=== PATIENT | female | born 1960 | race Caucasian/White ===

== ENCOUNTER → 2016-06-16 | Outpatient (REF) | payer MEDICARE ==
[~2016-06-16] MED LIST: ATIV1TAB10 PO; CIPR500T3 PO; HYDR1TAB97 PO; LEVA500T PO; MOXI1TAB PO; NAPR250T2 PO; NORC5TAB PO; OPSU1TAB PO; TYLE325T5 PO; TYVA0.6S INH; WARF-20 PO; WARF-23 PO
== END ==
LOC: M LAB REF 16:37
PROVIDERS: ATTEND Internal Medicine Medical Oncology
DX: C18.9 Malignant neoplasm of colon, unspecified (principal)

== ENCOUNTER → 2016-08-16 | Outpatient (CLI) | payer MEDICARE ==
[~2016-08-16] MED LIST changes: +GASTROGRAFIN SOLUTION 30ML (Q9963) As Ordered ONE; +HYDR-3713 PO; -HYDR1TAB97 PO; +ISOVUE-370 76% 100ML VIAL (Q9967) As Ordered ONE
--- NOTE | 2016-08-16 14:46 | REP ---
CT of the chest with IV contrast: Comparison is 03/17/2016. [id number] catheter is again noted entering from the left with the tip is in the superior vena cava, unchanged. There are no lung masses or nodules. There is a surgical suture line in the right lower lobe, as previously. There are no acute infiltrates or effusions. There is no mediastinal or hilar adenopathy. Thoracic aorta is unremarkable. Cardiac size normal. There is no pericardial effusion. There is no axillary adenopathy. No lytic, blastic or destructive skeletal changes are identified. Upper abdomen: Splenomegaly and splenic varices are again noted. Lobulated hepatic margin is again noted. Cholelithiasis is again noted. There is no adrenal mass. I suspect there are varices at the distal esophagus. This is unchanged. Impression: No evidence of pulmonary metastases is identified. There is no adenopathy, infiltrate or effusion. There is a surgical staple line in the right lower lobe, unchanged. There is evidence for cirrhosis and varices, unchanged. Splenomegaly is again noted. Cholelithiasis is again noted. Signed by Nahun Hernadez MD 08/16/2016 02:38 P
--- NOTE | 2016-08-16 15:00 | REP ---
CT abdomen pelvis with IV and oral contrast: Scan is continued from the chest into the abdomen using the same IV contrast bolus. Bowel contrast is also utilized. Additionally the liver scan prior to IV contrast. And the liver is additionally scanned with a delay after IV contrast. Comparison is 03/17/2016. Splenomegaly and splenic varices are again noted. The hepatic margin has a nodular appearance as previously compatible with cirrhosis. I suspect there are esophageal varices. These are unchanged. There are no focal hepatic lesions. The pancreas is unremarkable. There is cholelithiasis. This is unchanged. There is no biliary duct dilatation. The adrenals are unremarkable. The kidneys are unremarkable. Incidentally noted is a small 1 cm cyst in the upper pole of the right kidney. This is unchanged. The abdominal aorta is unremarkable. There is no retroperitoneal adenopathy. There is no mesenteric adenopathy or ascites. No bowel distension. Pelvis: The appendix is normal. A surgical suture line is again noted in the rectosigmoid colon, unchanged. There is no pelvic ascites or adenopathy. There are no lytic, blastic or destructive skeletal changes. Impression: No interval change. There is no evidence of metastatic disease, adenopathy or ascites. There is evidence for cirrhosis and splenomegaly. Splenic an esophageal varices are again noted. Cholelithiasis is again noted. Signed by Nahun Hernadez MD 08/16/2016 02:51 P
== END ==
LOC: M RAD 11:15
PROVIDERS: ATTEND Internal Medicine Medical Oncology
DX: C19 Malignant neoplasm of rectosigmoid junction (principal); R16.1 Splenomegaly, not elsewhere classified; K74.60 Unspecified cirrhosis of liver
CPT/HCPCS: 71260; 74178; Q9963; Q9967

== ENCOUNTER → 2016-08-31 | Outpatient (REF) | payer MEDICARE ==
[~2016-08-31] MED LIST changes: -GASTROGRAFIN SOLUTION 30ML (Q9963) As Ordered ONE; -ISOVUE-370 76% 100ML VIAL (Q9967) As Ordered ONE
== END ==
LOC: M LAB REF 16:27
PROVIDERS: ATTEND Internal Medicine Medical Oncology
DX: C18.9 Malignant neoplasm of colon, unspecified (principal)

== ENCOUNTER → 2016-09-15 | Outpatient (CLI) | payer MEDICARE ==
[~2016-09-15] MED LIST changes: +NORC1TAB4 PO; -NORC5TAB PO
--- NOTE | 2016-09-15 14:16 | REP ---
WHOLE BODY BONE SCAN: Following the intravenous administration of 20.2 millicuries technetium 99m MDP, the patient's whole body is imaged in the anterior and posterior projections with additional oblique images of the thoracic and pelvic regions performed as well as lateral views of the calvarium, knees and feet. There is small focal area of increased uptake at the left 11th costovertebral junction consistent with arthritic changes seen on the recent CT of 08/16/2016. There is no compelling scintigraphic evidence of osseous metastases. Renal and bladder activity are seen. IMPRESSION: No compelling scintigraphic evidence of osseous metastases. Signed by Nahun Byrnes MD 09/15/2016 02:29 P
== END ==
LOC: M RAD 10:37
PROVIDERS: ATTEND Internal Medicine Medical Oncology
DX: C18.9 Malignant neoplasm of colon, unspecified (principal); R07.81 Pleurodynia; M19.90 Unspecified osteoarthritis, unspecified site
CPT/HCPCS: 78306; A9503

== ENCOUNTER → 2016-12-13 | Outpatient (CLI) | payer MEDICARE ==
[~2016-12-13] MED LIST changes: +LEVA1TAB2 PO; -LEVA500T PO; -NAPR250T2 PO; +NAPR250T4 PO
--- NOTE | 2016-12-13 11:05 | REP ---
REASON: History of cirrhosis and hypertension. COMPARISON: None. Previous CT of the abdomen 08/16/2016 showed cholelithiasis, splenomegaly, and splenic varices along with a nodular appearing hepatic margin. Multiple ultrasonographic images of the liver show a course appearing echo pattern and a micronodular surface to the hepatic edge. There is no intrahepatic or extrahepatic ductal dilatation. The common bile duct measures between 4-5 mm. Imaging of the gallbladder shows multiple echogenic foci within the gallbladder lumen which casts acoustic shadows consistent with cholelithiasis. The gallbladder wall is mildly thickened measuring just over 2 mm but there is no pericholecystic edema. A Doppler study was not ordered or performed other than standard liver Doppler. The imaged portion of the right kidney was seen to be within normal limits. The pancreas was not visualized due to the patient's intestinal gas pattern. There is evidence of a recanalized umbilical vein which was better imaged on the prior CT. IMPRESSION: 1. The liver appears somewhat small although not measured. There is a micronodular surface to the hepatic edge. These findings are consistent with cirrhosis. 2. Evidence of vascular abnormalities also consistent with cirrhosis as described above. 3. Cholelithiasis also seen on previous CT. 4. Other findings as described above. Signed by Peter Nation DO 12/13/2016 11:15 A
== END ==
LOC: M RAD 09:31
PROVIDERS: ATTEND Internal Medicine Gastroenterology
DX: K74.69 Other cirrhosis of liver (principal); K76.6 Portal hypertension

== ENCOUNTER → 2016-12-31 | Outpatient (REF) | payer MEDICARE | LOC: M LAB REF 13:52 | PROVIDERS: ATTEND Internal Medicine Medical Oncology | DX: C18.9 Malignant neoplasm of colon, unspecified (principal) ==

== ENCOUNTER → 2017-02-10 | Outpatient (CLI) | payer MEDICARE ==
[~2017-02-10] MED LIST changes: +GASTROGRAFIN SOLUTION 30ML (Q9963) As Ordered ONE; +ISOVUE-370 76% 100ML VIAL (Q9967) As Ordered ONE
--- NOTE | 2017-02-10 11:55 | REP ---
Clinical: Colon cancer for restaging. Technique: Axial contrast enhanced images from the thoracic inlet to the pubic symphysis using oral and 100 ml Isovue 370 intravenous contrast material with precontrast and delayed images of the abdomen along with coronal and sagittal re-formations. Findings: The bilateral lung mitchell are well-aerated and demonstrate chronic linear scarring in the right lower lobe. No pulmonary parenchymal consolidation, nodule or mass lesion appreciated. No pleural effusion/reaction or pneumothorax. Tracheobronchial tree is patent. No axillary, hilar, or mediastinal adenopathy. Thoracic aorta and heart/pericardium appear normal. Surrounding musculoskeletal structures are intact without focal osseous abnormality. Suggestions for old healed left rib fractures noted. Impression: Chronic linear scarring in the right lower lobe. No acute mediastinal or pleuroparenchymal process. Specifically, no consolidation, nodule, mass, or effusion. Signed by Francisco Flower MD 02/10/2017 11:47 A
--- NOTE | 2017-02-10 12:00 | REP ---
Clinical: Colon cancer for restaging. Technique: Axial contrast enhanced images from the thoracic inlet to the pubic symphysis using oral and 100 ml Isovue 370 intravenous contrast material with precontrast and delayed images of the abdomen along with coronal and sagittal re-formations. Comparison: 08/16/2016. Findings: Lung bases are clear. Visualized heart and pericardium normal. Cirrhosis and portal venous hypertension including splenic and esophageal varices as well as recanalized umbilical vein are again identified. No focal hepatic or splenic lesion identified. Pancreas, bilateral adrenal glands and kidneys are relatively normal; simple bilateral renal cysts are again noted measuring up to approximately 1.5 cm. Cholelithiasis again identified without evidence for acute cholecystitis. The enteric system is without obstruction or acute inflammatory process. Normal terminal ileum and appendix are identified in the right lower quadrant. Evidence for prior partial sigmoid resection and anastomoses. Pelvis demonstrates normal bladder and age-appropriate uterus/adnexa. No ascites. No adenopathy. No obvious mass lesion. Abdominal aorta and vasculature within normal limits. Musculoskeletal structures without focal osseous abnormality. Impression: 1. Continued evidence for cirrhosis with portal venous hypertension including varices and portosystemic collateral vasculature. 2. No evidence for metastatic disease or recurrence. 3. No acute abdominopelvic pathology appreciated. Signed by Francisco Flower MD 02/10/2017 11:51 A
== END ==
LOC: M RAD 08:57
PROVIDERS: ATTEND Internal Medicine Medical Oncology
DX: C18.9 Malignant neoplasm of colon, unspecified (principal)
CPT/HCPCS: 71260; 74178; Q9963; Q9967

== ENCOUNTER → 2017-07-05 | Outpatient (REF) | payer MEDICARE ==
[2017-07-05 18:55] LABS: CARCINOEMBRYONIC ANTIGEN 1.4 NG/ML (<2.5)
== END ==
LOC: M LAB REF 17:31
DX: C18.9 Malignant neoplasm of colon, unspecified (principal)
CPT/HCPCS: 82378

== ENCOUNTER → 2017-07-07 | Outpatient (CLI) | payer MEDICARE ==
[2017-07-07 21:00] LABS: HEMATOCRIT 36.6 % (36.0-47.0); MEAN CORPUSCULAR HEMOGLOBIN 29.7 pg (27.0-33.0); MEAN CORPUSCULAR HGB CONC 32.8 g/dl (32.0-36.5); MEAN CORPUSCULAR VOLUME 90.6 fl (80.0-96.0); RED BLOOD COUNT 4.04 10^6/uL (4.00-5.40); RED CELL DISTRIBUTION WIDTH 13.3 % (11.5-14.5); WHITE BLOOD COUNT 5.5 10^3/uL (4.0-10.0)
[2017-07-07 21:09] LABS: ESTIMATED AVERAGE GLUCOSE 111 MG/DL (60-110); HEMOGLOBIN A1c 5.5 %
[2017-07-07 21:17] LABS: ALBUMIN 4.3 GM/DL (3.2-5.2); ALBUMIN/GLOBULIN RATIO 1.59 (1.00-1.93); ALKALINE PHOSPHATASE 115 U/L (45-117); ALT/SGPT 30 U/L (12-78); ANION GAP 6 MEQ/L (8-16); AST/SGOT 24 U/L (7-37); BILIRUBIN,TOTAL 1.4 MG/DL (0.2-1.0); BLOOD UREA NITROGEN 17 MG/DL (7-18); CALCIUM LEVEL 8.6 MG/DL (8.5-10.1); CARBON DIOXIDE LEVEL 25 MEQ/L (21-32); CHLORIDE LEVEL 113 MEQ/L (98-107); CHOLESTEROL LEVEL 157 MG/DL (<200); CHOLESTEROL RISK RATIO 2.065 (<5); CREATININE FOR GFR 0.85 MG/DL (0.55-1.30); FREE T4 0.99 NG/DL (0.76-1.46); GLOMERULAR FILTRATION RATE > 60.0 (>51); GLUCOSE, FASTING 95 MG/DL (70-100); HDL CHOLESTEROL 76 MG/DL (>40); LDL CHOLESTEROL 69.4 MG/DL (<100); NON-HDL-C 81 MG/DL; POTASSIUM SERUM 4.6 MEQ/L (3.5-5.1); SODIUM LEVEL 144 MEQ/L (136-145); TRIGLYCERIDES LEVEL 58 MG/DL (<150)
[2017-07-07 21:22] LABS: IMMATURE PLATELET FRACTION % 4.9 % (0.0-9.6); PLATELET COUNT, AUTOMATED 83 10^3/uL (150-450)
== END ==
LOC: M SMT 14:36
DX: Z13.220 Encounter for screening for lipoid disorders (principal); Z13.1 Encounter for screening for diabetes mellitus; Z79.899 Other long term (current) drug therapy
CPT/HCPCS: 84443

== ENCOUNTER → 2017-07-22 | Outpatient (REF) | payer MEDICARE ==
[2017-07-27 08:07] LABS: HPV HYBRID CAPTURE II Negative (Negative)
== END ==
LOC: M LAB REF 15:37
DX: Z12.4 Encounter for screening for malignant neoplasm of cervix (principal)
CPT/HCPCS: G0123

== ENCOUNTER → 2017-08-08 | Outpatient (CLI) | payer MEDICARE ==
[~2017-08-08] MED LIST changes: -ATIV1TAB10 PO; -CIPR500T3 PO; +GASTROGRAFIN SOLUTION 30ML (Q9963) As Ordered; -GASTROGRAFIN SOLUTION 30ML (Q9963) As Ordered ONE; -HYDR-3713 PO; +ISOVUE-370 76% 100ML VIAL (Q9967) As Ordered; -ISOVUE-370 76% 100ML VIAL (Q9967) As Ordered ONE; -LEVA1TAB2 PO; -MOXI1TAB PO; -NAPR250T4 PO; -NORC1TAB4 PO; -OPSU1TAB PO; -TYLE325T5 PO; -TYVA0.6S INH; -WARF-20 PO; -WARF-23 PO
== END ==
LOC: M RAD 11:16
DX: C34.90 Malignant neoplasm of unspecified part of unspecified bronchus or lung (principal); C78.00 Secondary malignant neoplasm of unspecified lung
CPT/HCPCS: Q9963

== ENCOUNTER → 2017-11-29 | Outpatient (REF) | payer MEDICARE ==
[2017-11-29 18:02] LABS: CARCINOEMBRYONIC ANTIGEN 2.4 NG/ML (<2.5)
== END ==
LOC: M LAB REF 16:41
DX: C18.7 Malignant neoplasm of sigmoid colon (principal); C78.01 Secondary malignant neoplasm of right lung; D70.1 Agranulocytosis secondary to cancer chemotherapy; T45.1X5A Adverse effect of antineoplastic and immunosuppressive drugs, initial encounter; D69.59 Other secondary thrombocytopenia
CPT/HCPCS: 82378

== ENCOUNTER → 2018-01-02 | Outpatient (CLI) | payer MEDICARE | LOC: M RAD 13:56 | DX: C78.01 Secondary malignant neoplasm of right lung (principal); I97.0 Postcardiotomy syndrome; K80.20 Calculus of gallbladder without cholecystitis without obstruction; R16.1 Splenomegaly, not elsewhere classified | CPT/HCPCS: Q9963 ==

== ENCOUNTER → 2018-03-14 | Outpatient (CLI) | payer MEDICARE | LOC: M PLARAD 13:15 | DX: C18.7 Malignant neoplasm of sigmoid colon (principal) | CPT/HCPCS: 78815 ==

== ENCOUNTER → 2018-04-14 | Outpatient (CLI) | payer MEDICARE ==
[~2018-04-14] MED LIST changes: -GASTROGRAFIN SOLUTION 30ML (Q9963) As Ordered; -ISOVUE-370 76% 100ML VIAL (Q9967) As Ordered; +PROHANCE 279.3MG/ML 15ML VIAL (A9576) As Ordered; +PROHANCE 279.3MG/ML 5ML VIAL (A9576) As Ordered
== END ==
LOC: M RAD 17:07
DX: K70.30 Alcoholic cirrhosis of liver without ascites (principal); K76.9 Liver disease, unspecified; Z85.038 Personal history of other malignant neoplasm of large intestine; R16.1 Splenomegaly, not elsewhere classified; K80.00 Calculus of gallbladder with acute cholecystitis without obstruction; N28.1 Cyst of kidney, acquired
CPT/HCPCS: A9576

== ENCOUNTER → 2018-06-09 | Outpatient (CLI) | payer MEDICARE ==
[~2018-06-09] MED LIST changes: +ATIV1TAB10 PO; +CIPR500T3 PO; +HYDR-3713 PO; +LEVA1TAB2 PO; +MOXI1TAB PO; +NAPR250T4 PO; +NORC1TAB4 PO; +OPSU1TAB PO; -PROHANCE 279.3MG/ML 15ML VIAL (A9576) As Ordered; +PROHANCE 279.3MG/ML 15ML VIAL (A9576) As Ordered ONE; -PROHANCE 279.3MG/ML 5ML VIAL (A9576) As Ordered; +PROHANCE 279.3MG/ML 5ML VIAL (A9576) As Ordered ONE; +TYLE325T5 PO; +TYVA0.6S INH; +WARF-20 PO; +WARF-23 PO
--- NOTE | 2018-06-09 15:40 | REP ---
MRI abdomen without and with intravenous gadolinium: History: Liver lesion. Comparison study April 14, 2018. Comparison CT study is from January 02, 2018. Comparison PET/CT findings are from March 14, 2018. Technique: Axial and coronal T1 and T2-weighted scans were obtained. Sequences include spin-echo, gradient-echo, fast spin echo, diffusion, in and nea-ni-guosu, and dynamically acquired sequential post contrast T1 fat sat images. Gadolinium enhancement dose is 18 mL of intravenous ProHance. MRI findings: The hepatic findings are unchanged from the comparison MRI study April 14, 2018. There is evidence of advanced cirrhosis with areas of fibrosis in the liver. The posterior segment of the right hepatic lobe is atrophic with overall volume loss. There is abnormal signal intensity on T2-weighted scans in this remaining posterior segment right hepatic lobe tissue but this is unchanged from the prior study. Intrahepatic biliary ductal dilation is suspected in this region, also unchanged. The main portal vein is patent. The left main portal vein and its branches are patent. The anterior segment portal vein branches are patent. The posterior segment portal vein branches are less well seen as before. There is no definite hepatic mass. Splenomegaly is observed. Renal cysts are observed. No upper abdominal or retroperitoneal adenopathy is observed. Cholelithiasis is again seen. Impression: Findings unchanged from the 14 April 2018 prior MRI study. No observable intrahepatic mass lesion. Advanced cirrhosis changes with hepatic scarring. Electronically Signed by Artis Doyle MD 06/09/2018 07:23 P
--- NOTE | 2018-06-21 16:50 | MEDONCTEEN ---
Date/Time of Encounter Date of Encounter: Jun 21, 2018 Time of Encounter: 16:45 Telephone Encounter Kinga was concerned about her CEA. Recent CEA from 05/2018 slightly increased from previous. I suggested repeat CEA this month. If this should show continuing increase, may consider a PET scan. Kinga has agreed to this plan. EARLENE JALLOH MD Jun 21, 2018 16:49
== END ==
LOC: M RAD 13:29
PROVIDERS: ATTEND Nurse Practitioner Acute Care
DX: K76.9 Liver disease, unspecified (principal)
CPT/HCPCS: 74183; A9576

== ENCOUNTER → 2018-07-04 | Outpatient (CLI) | payer MEDICARE ==
[~2018-07-04] MED LIST changes: -PROHANCE 279.3MG/ML 15ML VIAL (A9576) As Ordered ONE; -PROHANCE 279.3MG/ML 5ML VIAL (A9576) As Ordered ONE
--- NOTE | 2018-07-04 16:18 | REP ---
PET/CT: History: Metastatic colon cancer with increasing tumor markers. Rising CEA level. Comparisons: Comparison PET-CT study March 14, 2018. TECHNIQUE: 56 minutes following the intravenous injection of a 8.2 mCi dose of F-18 FDG, three-dimensional PET scintigraphy is acquired from the skull base to the proximal thighs. Triplanar noncontrast CT scanning is acquired through the same anatomic range for attenuation correction, and image registration with scan parameters optimized to minimize radiation exposure to the patient. PET scintigraphy and CT datasets were fused and displayed on a workstation with multiplanar and projection display capability. PET/CT Findings: There is new hypermetabolic uptake in a retroareolar nodule in the left breast. This has maximum standard uptake value 9.3. In addition, there is hypermetabolic brian uptake in the left axilla with two or three normal size brian foci displaying maximum standard uptake value of 4.2. No abnormal hypermetabolic uptake is seen within the liver today. Known cirrhosis pattern. Cholelithiasis. No abnormal retroperitoneal hypermetabolic uptake is seen. An anastomosis is seen in the pelvis in distal colon. No abnormal hypermetabolic uptake is seen here. Post thoracotomy changes are seen in the right chest. No abnormal pulmonary parenchymal nodule is seen. Impression: Hypermetabolic left breast subareolar nodule with mildly hypermetabolic left axillary lymphadenopathy most compatible with breast carcinoma. These are new findings compared with the March 14, 2018 prior study. Focused left breast sonography and mammography are recommended. Consider ultrasound-guided needle biopsy procedure. Electronically Signed by Artis Doyle MD 07/05/2018 08:02 A
== END ==
LOC: M PLARAD 09:42
PROVIDERS: ATTEND Internal Medicine Medical Oncology
DX: Z85.038 Personal history of other malignant neoplasm of large intestine (principal); N63.20 Unspecified lump in the left breast, unspecified quadrant; K80.20 Calculus of gallbladder without cholecystitis without obstruction; K74.60 Unspecified cirrhosis of liver; Z98.0 Intestinal bypass and anastomosis status; R59.0 Localized enlarged lymph nodes
CPT/HCPCS: 78815; A9552

== ENCOUNTER → 2018-09-19 | Outpatient (CLI) | payer MEDICARE ==
[~2018-09-19] MED LIST changes: -NORC1TAB4 PO; +NORC1TAB7 PO
--- NOTE | 2018-09-19 17:36 | REP ---
PET/CT: History: Restaging rectosigmoid colon carcinoma. Status post robotic assisted low anterior resection in September of 2013. Most recent PET-CT study from July 04, 2018 showed a new focus of subareolar uptake in the left breast with hypermetabolic left breast lymph nodes. She apparently also has a nearly lifelong history of intermittent mastitis in that left breast. Comparisons: Comparison PET-CT study July 04, 2018, March 14, 2018, and May 08, 2015. TECHNIQUE: 47 minutes following the intravenous injection of a 8.52 mCi dose of F-18 FDG, three-dimensional PET scintigraphy is acquired from the skull base to the proximal thighs. Triplanar noncontrast CT scanning is acquired through the same anatomic range for attenuation correction, and image registration with scan parameters optimized to minimize radiation exposure to the patient. PET scintigraphy and CT datasets were fused and displayed on a workstation with multiplanar and projection display capability. PET/CT Findings: There is no longer hypermetabolic uptake in the left breast or in any of the left axillary lymph nodes. This would be compatible with the additional history provided of inflammation from mastitis. There is no abnormal hypermetabolic uptake in the chest. There is a 5 mm nodule in the right middle lobe on today's accompanying CT images. This is not clearly apparent on the prior PET-CT. No pulmonary parenchymal hypermetabolic uptake is seen. No other pulmonary nodule is apparent. Irregular macronodular liver contours are again seen suggesting possible cirrhosis. There is once again an area of mildly hypermetabolic uptake in the right lobe of the liver high near the dome of the diaphragm, which demonstrates metabolic activity higher than background liver. Maximum standard uptake value is 6.71. This is the same area, which showed mildly hypermetabolic uptake in March of 2018. It was not present on the most recent PET scintigraphy. No other hypermetabolic liver lesion is seen. No hypermetabolic abdominal adenopathy is seen. Cholelithiasis is noted. No other abnormal abdominal or pelvic hypermetabolic uptake is seen Impression: The recently noted left breast hypermetabolic activity has resolved consistent with an episode of inflammatory mastitis. There is recurrent hypermetabolic uptake in the right lobe of the liver of uncertain significance. There is concomitant evidence suggestive of cirrhosis. No other abnormal hypermetabolic foci. Electronically Signed by Artis Doyle MD 09/20/2018 08:17 A
== END ==
LOC: M PLARAD 13:31
PROVIDERS: ATTEND Internal Medicine Hematology & Oncology
DX: C19 Malignant neoplasm of rectosigmoid junction (principal); R93.2 Abnormal findings on diagnostic imaging of liver and biliary tract
CPT/HCPCS: 78815; A9552

== ENCOUNTER → 2019-02-23 | Outpatient (CLI) | payer MEDICARE ==
[2019-02-23 14:54] LABS: BASO % 0.4 % (0.0-1.0); EOS # 0.1 10^3/uL (0.0-0.5); HEMATOCRIT 36.9 % (36.0-47.0); LYMPH # 0.8 10^3/uL (1.5-5.0); LYMPH % 11.8 % (24.0-44.0); MEAN CORPUSCULAR HEMOGLOBIN 28.8 pg (27.0-33.0); MEAN CORPUSCULAR HGB CONC 32.5 g/dl (32.0-36.5); MEAN CORPUSCULAR VOLUME 88.5 fl (80.0-96.0); MONO # 0.5 10^3/uL (0.0-0.8); MONO % 7.2 % (0.0-5.0); NEUTROPHILS # 5.3 10^3/uL (1.5-8.5); PLATELET COUNT, AUTOMATED 108 10^3/uL (150-450); RED BLOOD COUNT 4.17 10^6/uL (4.00-5.40); WHITE BLOOD COUNT 6.7 10^3/uL (4.0-10.0)
[2019-02-23 15:26] LABS: INR 1.21
[2019-02-23 15:27] LABS: ALBUMIN 4.1 GM/DL (3.2-5.2); ALT/SGPT 24 U/L (12-78); BILIRUBIN,TOTAL 1.2 MG/DL (0.2-1.0); BLOOD UREA NITROGEN 16 MG/DL (7-18); CALCIUM LEVEL 9.2 MG/DL (8.5-10.1); CARBON DIOXIDE LEVEL 24 MEQ/L (21-32); CHLORIDE LEVEL 110 MEQ/L (98-107); CREATININE FOR GFR 0.94 MG/DL (0.55-1.30); GLOMERULAR FILTRATION RATE > 60.0 (>51); GLUCOSE, FASTING 101 MG/DL (70-100); PARTIAL THROMBOPLASTIN TIME 30.6 SECONDS (25.0-38.4); SODIUM LEVEL 143 MEQ/L (136-145); TOTAL PROTEIN 6.8 GM/DL (6.4-8.2)
== END ==
LOC: M ONCM 13:45
PROVIDERS: ATTEND Physician Assistant
DX: D49.9 Neoplasm of unspecified behavior of unspecified site (principal); C18.9 Malignant neoplasm of colon, unspecified

== ENCOUNTER → 2019-03-05 | Outpatient (CLI) | payer MEDICARE ==
[~2019-03-05] MED LIST changes: +LIDOCAINE 1% MDV 20ML VIAL As Ordered ONE; +MIDAZOLAM INJ 2 MG/2 ML VIAL (J2250) As Ordered ONE; +ONDA8TAB7 PO; +PROC10TA4 PO; +VANCOMYCIN HCL 500 MG/10 ML VIAL (J3370) As Ordered ONE; +diphenhydrAMINE INJ 50MG/ML VIAL (J1200) As Ordered ONE; +fentaNYL 100 MCG/2 ML INJECTION (J3010) As Ordered ONE
--- NOTE | 2019-03-05 15:25 | IRHP ---
[facility] IR Pre-Procedure H & P General Date of Service: Mar 05, 2019 Procedure: Same Day Surgery Interval History and Physical I have seen the patient and reviewed last H & P performed within 30 days. There is no significant interval change. History of Present Illness Chief Complaint The patient is a 58-year-old female admitted with a reason for visit of Metastatic Lung Ca. PRE-PROCEDURE DIAGNOSIS: lung ca HEART: normal rate. LUNGS: normal breathing at rest. ASA Classification ASA Classification: II-Mild systemic disease Mallampati Score: I NPO: Yes Problems with prior sedation: No Obstructive Sleep Apnea: No Plan moderate sedation Allergies Coded Allergies: Penicillins (Verified Allergy, Unknown, 09/04/18) Home Medications Scheduled Macitentan (Opsumit), 10 MG PO DAILY, (Reported) Treprostinil (Tyvaso), 2.9 ML INH QID, (Reported) Scheduled PRN Lorazepam (Ativan), 0.5 MG PO PRN PRN for ANXIETY/AGITATION, (Reported) VS, I&O, 24H, Fishbone Vital Signs/I&O Vital Signs Date Time Temp Pulse Resp B/P (MAP) Pulse Ox O2 Delivery O2 Flow Rate FiO2 03/05/19 14:45 97.3 83 18 98 DAVIDSON FARFAN MD Mar 05, 2019 15:25
[2019-03-05 19:09] VITALS: BP 147/56
--- NOTE | 2019-03-28 12:07 | REP ---
IR Ultrasound and fluoroscopy-guided port placement. IR Ultrasound of the neck. IR Moderate sedation. Clinical information: colon cancer. Physician: Dr. Spence. Procedure: The patient was advised of the benefits, risks, and alternatives of the procedure and informed consent was obtained. A time-out was performed with verification of the patient's name, MRN, site of procedure and type of procedure to be performed. The patient was positioned in the supine position on the angiographic table. The site was prepped and draped in the usual sterile fashion. Moderate sedation was performed by the physician including the presence of an independent trained observer who assisted and monitored the patient's level of consciousness and physiologic status. Following the administration of fentanyl and Versed , the physician spent 45 minutes of continuous face to face time with the patient. Ultrasound of the neck reveals a patent and compressible right internal jugular vein. A health and physical education teacher radiograph reveals right perihilar opacity . The neck and anterior chest wall were anesthetized with lidocaine. The right internal jugular vein was accessed using a microintroducer needle under ultrasound guidance, via a lateral approach. An 018 wire was advanced into the superior vena cava, the needle was removed and a microsheath was placed. An Amplatz wire was then passed into the inferior vena cava. An incision at the internal jugular vein access site and anterior chest wall were made using a scalpel. An incision was made at the anterior chest wall. A small pocket was created using a combination of blunt and sharp dissection. A tunneling device was then used to pass the catheter from the pocket to the neck puncture site. An 8-[place] Ang[employer] 3Point[employer] Smart power port was then positioned in the pocket. The catheter was then measured and cut. The introducer sheath was exchanged for a peel-away sheath. The catheter was passed through the peel-away sheath into the internal jugular vein and the peel-away sheath was removed. The port tip was positioned at the cavoatrial junction. The port was then accessed with a Almazan needle. The port flushes and aspirates well. The puncture site in the neck was closed. The chest wall incision was then closed with 2-0 Vicryl and 4-0 Monocryl. Glue and Steri-Strips were applied. A sterile dressing was then applied. The patient tolerated the procedure well and was returned to the PRU in stable condition. Estimated blood loss: <5 ml. Complications: None. Conclusion: 1. Successful placement of an 8-[place] Angio dynamics Smart power port via the right internal jugular vein. The port is ready for immediate use. 2. Patient to follow up in IR clinic in 2 weeks. Thank you for this referral. Electronically Signed by Hannah Spence MD 03/28/2019 12:05 P
== END ==
LOC: M IRPRO 14:19
PROVIDERS: ATTEND Radiology Diagnostic Radiology
DX: C18.9 Malignant neoplasm of colon, unspecified (principal); C78.7 Secondary malignant neoplasm of liver and intrahepatic bile duct; Z88.0 Allergy status to penicillin; Z79.899 Other long term (current) drug therapy
CPT/HCPCS: 36561; 76937; 99152; 99153; C1769; C1788; C1894; J1200; J2250; J3010; J3370

== ENCOUNTER → 2019-03-20 | Outpatient (POV) | payer MEDICARE ==
[~2019-03-20] VITALS: Ht 160 cm; Wt 88.6 kg
[~2019-03-20] MED LIST changes: -LIDOCAINE 1% MDV 20ML VIAL As Ordered ONE; -MIDAZOLAM INJ 2 MG/2 ML VIAL (J2250) As Ordered ONE; -VANCOMYCIN HCL 500 MG/10 ML VIAL (J3370) As Ordered ONE; -diphenhydrAMINE INJ 50MG/ML VIAL (J1200) As Ordered ONE; -fentaNYL 100 MCG/2 ML INJECTION (J3010) As Ordered ONE
[2019-03-20 09:50] VITALS: BP 141/83
--- NOTE | 2019-03-20 10:19 | IRPN ---
[facility] IR Progress Note IR Progress Note DATE: Mar 20, 2019 FOLLOW-UP: 2 weeks status post right chest wall port placement. Patient doing well. No fevers or chills. However, she does sleep on her right side and feels it irritates her around the clavicle. History of prior clavicle fracture. ON EXAMINATION: Right chest wall port site healing well. Right venotomy site stitch still not dissolved. Site looks good. Symmetric bilateral soft tissue pads above the clavicle. IMPRESSION: Doing well status post port placement. I think once the venotomy site stitch dissolves and the catheter becomes incorporated, patient will feel less bothered. I'll follow her up in 3 weeks' time and if she's still bothered by this sensation around the clavicle, we'll discuss options for an arm port. Thank you for this referral. Allergies Coded Allergies: Penicillins (Verified Allergy, Unknown, 09/04/18) VS,Fishbone, I+O VS, Fishbone, I+O Vital Signs Date Time Temp Pulse Resp B/P (MAP) Pulse Ox O2 Delivery O2 Flow Rate FiO2 03/20/19 09:50 97.1 94 16 141/83 (102) 98 DAVIDSON FARFAN MD Mar 20, 2019 10:19
== END ==
LOC: M IRPOV 09:46
PROVIDERS: ATTEND Radiology Diagnostic Radiology
DX: Z45.2 Encounter for adjustment and management of vascular access device (principal)

== ENCOUNTER → 2019-03-29 | Outpatient (CLI) | payer MEDICARE ==
[2019-03-30 10:25] LABS: HEPATITIS B CORE ANTIBODY IGM NEGATIVE (NEGATIVE); HEPATITIS B SURFACE ANTIBODY POSITIVE (POSITIVE); HEPATITIS B SURFACE ANTIGEN NEGATIVE (NEGATIVE)
== END ==
LOC: M LAB 16:07
PROVIDERS: ATTEND Physician Assistant
DX: K74.60 Unspecified cirrhosis of liver (principal)

== ENCOUNTER → 2019-06-04 | Outpatient (CLI) | payer MEDICARE ==
[~2019-06-04] MED LIST changes: +GASTROGRAFIN SOLUTION 30ML (Q9963) As Ordered ONE; +ISOVUE-370 76% 100ML VIAL (Q9967) As Ordered ONE
--- NOTE | 2019-06-04 14:42 | REP ---
Clinical: Metastatic colon cancer. Technique: Axial contrast enhanced images from the thoracic inlet to the upper abdomen with coronal and sagittal re-formations using 100 ml Isovue 370 intravenous contrast material. Comparison: 02/12/2019. Findings: Diffuse metastatic disease with scattered rounded lesions are appreciated which have slightly increased from prior examination. As example, a metastatic focus in the right lower lobe now measures 9.4 mm diameter and previously measured 5.5 mm (image 84), and a left lower lobe lesion currently measuring 9 mm diameter previously measured 5.5 mm (image 57). No effusion. No pneumothorax. Tracheobronchial tree is patent. No significant axillary, hilar, or mediastinal adenopathy. Thoracic aorta, pulmonary vasculature and heart/pericardium are relatively normal. Musculoskeletal structures without focal osseous abnormality. [id number] identified with tip in the SVC. Impression: 1. Current examination demonstrates slight increase in size of the bilateral metastatic foci. Electronically Signed by Francisco Flower MD 06/04/2019 02:34 P
--- NOTE | 2019-06-04 14:53 | REP ---
Clinical: Metastatic colon cancer. Technique: Axial contrast enhanced images from the lung bases to the pubic symphysis using oral (per protocol) 100 ml Isovue 370 intravenous contrast material with coronal and sagittal re-formations. Delayed images of the abdomen obtained. Comparison: 02/12/2019 Findings: Evidence for cirrhosis with portal venous hypertension including large recanalized umbilical vein, portosystemic shunting, and splenomegaly. There is a somewhat vague low density area along the posterior contour of the liver which is concerning for area of metastatic disease. Cholelithiasis. Pancreas, bilateral adrenal glands and left kidney are normal. Right kidney includes few cysts measuring up to 1.6 cm. The enteric system demonstrates evidence for prior partial sigmoid resection and the pericolonic fat surrounding the area of resection appears relatively clear and free of adjacent adenopathy or obvious mass. Remainder of the enteric system including terminal ileum, cecum and appendix appear normal. Pelvis demonstrates partially collapsed bladder and age-appropriate uterus/adnexa. No ascites. No mass lesion. Retroperitoneal paracaval lymph nodes are again appreciated measuring up to approximately 17.5 mm. Abdominal aorta without aneurysm or dissection. Osseous structures demonstrate degenerative changes without focal abnormality. Impression: 1. Evidence for cirrhosis with portal hypertension. 2. Somewhat vague low density area within the posterior right hepatic segment is nonspecific but cannot exclude hepatic metastatic disease. 3. Paracaval retroperitoneal lymph nodes up to 17.5 mm concerning for malignancy. Electronically Signed by Francisco Flower MD 06/04/2019 02:46 P
== END ==
LOC: M RAD 12:10
PROVIDERS: ATTEND Internal Medicine Medical Oncology
DX: C18.7 Malignant neoplasm of sigmoid colon (principal); R93.5 Abnormal findings on diagnostic imaging of other abdominal regions, including retroperitoneum; C78.7 Secondary malignant neoplasm of liver and intrahepatic bile duct; C78.01 Secondary malignant neoplasm of right lung
CPT/HCPCS: 71260; 74177; Q9963; Q9967

== ENCOUNTER → 2019-12-27 | Outpatient (CLI) | payer MEDICARE ==
[~2019-12-27] MED LIST changes: -GASTROGRAFIN SOLUTION 30ML (Q9963) As Ordered ONE; -ISOVUE-370 76% 100ML VIAL (Q9967) As Ordered ONE; +LOMO2.5T PO; +LONS1TAB2 PO; +LOPE1CAP5 PO; +ONDA8TAB10 PO; -ONDA8TAB7 PO
== END ==
LOC: M LAB 11:50
PROVIDERS: ATTEND Internal Medicine Medical Oncology
DX: C18.9 Malignant neoplasm of colon, unspecified (principal)

== ENCOUNTER → 2020-02-13 | Outpatient (CLI) | payer MEDICARE, MEDICAID ==
[~2020-02-13] MED LIST changes: +GASTROGRAFIN SOLUTION 30ML (Q9963) As Ordered ONE; +ISOVUE-370 76% 100ML VIAL As Ordered ONE
--- NOTE | 2020-03-05 10:52 | REP ---
CONTRAST ENHANCED CHEST CT: 02/13/20 CLINICAL: Follow-up metastatic colon cancer. TECHNIQUE: Axial contrast enhanced images from the thoracic inlet to the upper abdomen with coronal and sagittal reformations using 100cc Isovue 370 intravenous contrast material followed by CT of the abdomen and pelvis. COMPARISON: Multiple prior examinations dating through 01/02/2018. FINDINGS: The lung mitchell demonstrate scattered chronic areas of fibrosis/scarring primarily identified in the apical right lower lobe and scattered small partially calcified and non-calcified nodules which represent sequelae from prior metastatic disease. Lesions on the prior examination have essentially either resolved and partially calcified or remained stable in size. The general appearance is that of significant improvement and no new pulmonary metastatic nodules are identified. No consolidation. No effusion. No pneumothorax. Tracheobronchial tree is patent. No significant adenopathy noted .Further evaluation of the mediastinum demonstrates normal thoracic aorta. The main pulmonary artery appears dilated to 44.8mm diameter, which may represent underlying pulmonary arterial hypertension and should be correlated clinically. No evidence for cardiomegaly or pericardial effusion. [id number] identified with tip extending into SVC. The musculoskeletal structures are intact and without focal osseous abnormality. IMPRESSION: 1. Previously noted metastatic lesions have either stabilized or completely regressed and partially calcified. No new metastatic lesions are appreciated. No new consolidation or significant nodule/mass identified. 2. Enlarged pulmonary artery suggesting the possibility of pulmonary arterial hypertension and correlation is recommended. MTDD
--- NOTE | 2020-03-05 10:52 | REP ---
CONTRAST-ENHANCED CT OF ABDOMEN AND PELVIS CLINICAL: History of metastatic colon cancer. TECHNIQUE: Axial contrast-enhanced images from the lung bases to the pubic symphysis using oral (per protocol) and 100 mL Isovue-370 intravenous contrast material along with delayed images of the abdomen and coronal and sagittal reformations. COMPARISON: Multiple prior examinations dating through 01/02/2018. FINDINGS: The liver demonstrates stable chronic changes related to cirrhosis. There is an area of vague enhancement along the posterior segment right lobe, similar to prior examination which may reflect an underlying infiltrating lesion, or transient hepatic attenuation, splenomegaly, and evidence for portal hypertension including canalized umbilical vein noted. Pancreas and bilateral adrenal glands are normal. The gallbladder is distended with multiple gallstones again noted. The kidneys demonstrate normal symmetric enhancement without perinephric stranding or hydronephrosis, along with a few scattered stable cysts measuring up to 1.7 cm in the upper pole of the right kidney. Evaluation of the enteric system demonstrates prior partial sigmoid resection and rectosigmoid anastomosis in the pelvis. The residual rectosigmoid portion distal to the anastomosis and suture line demonstrates circumferential mucosal wall thickening, which represents a relatively new finding as compared to most recent prior examination. Further evaluation of the pelvis demonstrates normal collapsed bladder and age appropriate uterus/adnexa. No pelvic fluid or ascites. No free air. Small mesenteric lymph nodes are nonspecific. Paracaval retroperitoneal lymph nodes are also identified measuring up to approximately 12 mm, but appear less prominent than prior examinations. Abdominal aorta without aneurysm or dissection. Musculoskeletal structures are intact and without focal osseous abnormalities. IMPRESSION: The residual rectosigmoid distal to the anastomosis demonstrates circumferential mucosal wall thickening which requires further investigation to exclude recurrence. MTDD
== END ==
LOC: M RAD 14:10
PROVIDERS: ATTEND Internal Medicine Medical Oncology
DX: C18.9 Malignant neoplasm of colon, unspecified (principal)
CPT/HCPCS: 71260; 74177; Q9963; Q9967

== ENCOUNTER → 2020-05-06 | Outpatient (CLI) | payer MEDICARE ==
--- NOTE | 2020-05-06 17:50 | REP ---
INDICATION: METASTATIC COLON CA. COMPARISON: Comparison CT studies are reviewed from May 18, 2019 and February 13, 2020.. TECHNIQUE: 100 cc of intravenous Isovue 370 is administered. Helical scanning is acquired and 3 mm axial images are generated. Coronal and sagittal MPR images are generated. FINDINGS: There are numerous metastatic nodules in the lungs bilaterally in the lower and upper lobes and right middle lobe. None of these is larger than a cm and all are unchanged from the most recent prior study of February 13, 2020, many of these are regressed compared with the June 04, 2019 study. No new pulmonary metastatic nodule is appreciated. No infiltrate is seen. Post thoracotomy partial pneumonectomy linear fibrosis is seen in the distribution of the right lower lobe. This is unchanged. No pleural or pericardial effusion is seen. No hilar or mediastinal mass or adenopathy is observed. There is moderate dilation of the main pulmonary artery and central pulmonary arteries consistent with pulmonary arterial hypertension. The main pulmonary artery measures 4.8 cm in right left dimension where as the ascending aorta at the level of the right main pulmonary artery measures 2.9 cm. The interventricular septum is rather straight and the right heart appears somewhat dilated consistent with an these findings. These findings are unchanged. There is evidence of hepatic cirrhosis with possible portal hypertension. The umbilical vein appears to be recannulated. There are gallstones in the gallbladder. No new liver mass lesion is appreciated. Bone window settings show no bony destructive lesion. There is degenerative disc changes in the lower thoracic and lumbar spine. IMPRESSION: Numerous stable pulmonary nodules all of which are under a cm in diameter. Most of these have regressed since the June 04, 2019 study and there is no change in size or number from the more recent study of February 13, 2020. Evidence of pulmonary arterial hypertension again noted. Hepatic cirrhosis changes. <Electronically signed by James Doyle > 05/06/20 [id number]
--- NOTE | 2020-05-06 17:54 | REP ---
INDICATION: METASTATIC COLON CA. COMPARISON: None. TECHNIQUE: Helical scanning is acquired and 3 mm axial images re-formatted. Coronal and sagittal MPR images are generated. The CT contrast enhancement dose is 100 mL of intravenous Isovue 370. FINDINGS: There is a again noted evidence of a patent cirrhosis with macro nodular liver contour. There is some regional atrophy of the posterior segment of the right lobe of the liver with a somewhat inhomogeneous contrast enhancement in this region unchanged. Splenomegaly is again observed unchanged. There is recannulization of the umbilical vein again noted consistent with portal hypertension. Opaque gallstones are noted in the dependent portion the gallbladder as before. No pancreatic abnormality is seen. No adrenal abnormality is seen. No new liver mass lesion or adenopathy is observed. The kidneys enhance symmetrically and appear morphologically intact. Normal appendix is seen. Small and large bowel loops are unremarkable in the upper abdomen. Pelvic CT images demonstrate an unremarkable rectosigmoid anastomosis. No pelvic mass or adenopathy is seen. Previously noted mural thickening is not observed today. No uterine or adnexal abnormality is seen. Urinary bladder is largely empty but appears intact. IMPRESSION: Evidence of a patent cirrhosis and probable portal venous hypertension again noted. Liver is unchanged. Splenomegaly and cholelithiasis are again seen. No abdominal mass or adenopathy seen. <Electronically signed by James Doyle > 05/06/20 [id number]
== END ==
LOC: M RAD 14:52
PROVIDERS: ATTEND Internal Medicine Medical Oncology
DX: C18.9 Malignant neoplasm of colon, unspecified (principal); I27.20 Pulmonary hypertension, unspecified; K74.60 Unspecified cirrhosis of liver; R16.1 Splenomegaly, not elsewhere classified; K80.20 Calculus of gallbladder without cholecystitis without obstruction
CPT/HCPCS: 71260; 74177; Q9963; Q9967

== ENCOUNTER → 2020-06-12 | Outpatient (CLI) | payer MEDICARE ==
[~2020-06-12] MED LIST changes: -GASTROGRAFIN SOLUTION 30ML (Q9963) As Ordered ONE; -ISOVUE-370 76% 100ML VIAL As Ordered ONE
== END ==
LOC: M LABSMTC 11:36
PROVIDERS: ATTEND Anesthesiology
DX: Z01.812 Encounter for preprocedural laboratory examination (principal); Z20.822 Contact with and (suspected) exposure to COVID-19

== ENCOUNTER → 2020-10-22 | Outpatient (CLI) | payer MEDICARE ==
[~2020-10-22] MED LIST changes: +COVI100V IM; +NAPR-849 PO; -NAPR250T4 PO
== END ==
LOC: M LABSMTC 11:30
PROVIDERS: ATTEND Anesthesiology
DX: Z01.812 Encounter for preprocedural laboratory examination (principal); Z20.822 Contact with and (suspected) exposure to COVID-19

== ENCOUNTER 2020-10-27 11:37 | Day surgery (SDC) | payer MEDICARE ==
[~2020-10-27] VITALS: Ht 162.6 cm; Wt 80.3 kg
[~2020-10-27 11:37] MED LIST changes: +NS 1,000 ML IV ONE
[2020-10-27] MEDS ORDERED: LIDOCAINE 2% 100MG/5ML SDV (FOR ANES.) As Ordered ONE (12:04)
[2020-10-27] MEDS ORDERED: propofoL 200 MG/20 ML VIAL As Ordered ONE ×2 (12:04→12:21)
[2020-10-27] MEDS ORDERED: fentaNYL 100 MCG/2 ML INJECTION (J3010) As Ordered ONE (12:16)
--- NOTE | 2020-10-27 13:06 | ROOR ---
Patient Name: Kinga Peña Procedure Date: 10/27/2020 12:13 PM Date of : 1960 Age: 60 Room: [facility] Gender: Female Note Status: Finalized Procedure: Upper GI endoscopy Indications: Portal hypertension with suspected esophageal varices, Abnormal CT of the GI tract, Follow-up of polyps in the duodenum Providers: Kyle Sorenson MD Referring MD: Nicole HUITRON DO Requesting Provider: Medicines: Monitored Anesthesia Care Complications: No immediate complications. Procedure: Pre-Anesthesia Assessment: - Prior to the procedure, a History and Physical was performed, and patient medications and allergies were reviewed. The patient is competent. The risks and benefits of the procedure and the sedation options and risks were discussed with the patient. All questions were answered and informed consent was obtained. Patient identification and proposed procedure were verified by the physician, the nurse and the anesthesiologist in the procedure room. Mental Status Examination: alert and oriented. Airway Examination: normal oropharyngeal airway and neck mobility. Respiratory Examination: clear to auscultation. CV Examination: normal. Prophylactic Antibiotics: The patient does not require prophylactic antibiotics. Prior Anticoagulants: The patient has taken no previous anticoagulant or antiplatelet agents. ASA Grade Assessment: II - A patient with mild systemic disease. After reviewing the risks and benefits, the patient was deemed in satisfactory condition to undergo the procedure. The anesthesia plan was to use monitored anesthesia care (MAC). Immediately prior to administration of medications, the patient was re-assessed for adequacy to receive sedatives. The heart rate, respiratory rate, oxygen saturations, blood pressure, adequacy of pulmonary ventilation, and response to care were monitored throughout the procedure. The physical status of the patient was re-assessed after the procedure. The Endoscope was introduced through the mouth, and advanced to the second part of duodenum. The upper GI endoscopy was accomplished without difficulty. The patient tolerated the procedure well. Findings: The examined esophagus was normal. The Z-line was regular and was found 39 cm from the incisors. There is no endoscopic evidence of varices in the entire esophagus. Patchy moderate inflammation characterized by erosions, erythema, friability and granularity was found in the gastric antrum. Biopsies were taken with a cold forceps for Helicobacter pylori testing. Biopsies were taken with a cold forceps for histology. Verification of patient identification for the specimen was done by the physician and nurse using the patient's name, date and medical record number. Estimated blood loss was minimal. The duodenal bulb, second portion of the duodenum and third portion of the duodenum were normal. Impression: - Normal esophagus. - Z-line regular, 39 cm from the incisors. - Gastritis. Biopsied. - Normal duodenal bulb, second portion of the duodenum and third portion of the duodenum. Recommendation: - Patient has a contact number available for emergencies. The signs and symptoms of potential delayed complications were discussed with the patient. Return to normal activities tomorrow. Written discharge instructions were provided to the patient. - High fiber diet. - Continue present medications. - Await pathology results. - Use Pepcid (famotidine) 20 mg PO Twice daily ( take cook morning on empty stomach and at bedtime) for 8 weeks. - Telephone GI clinic for pathology results in 2 weeks. - Return to primary care physician. Procedure Code(s): --- Professional --- 87166, Esophagogastroduodenoscopy, flexible, transoral; with biopsy, single or multiple Diagnosis Code(s): --- Professional --- K29.70, Gastritis, unspecified, without bleeding K76.6, Portal hypertension K31.7, Polyp of stomach and duodenum R93.3, Abnormal findings on diagnostic imaging of other parts of digestive tract CPT copyright 2019 [employer]. All rights reserved. The codes documented in this report are preliminary and upon gluing machine offbearer review may be revised to meet current compliance requirements. Kyle Sorenson MD Kyle Sorenson MD 10/27/2020 1:06:23 PM Electronically signed by Kyle Sorenson MD Number of Addenda: 0 Note Initiated On: 10/27/2020 12:13 PM Estimated Blood Loss: Estimated blood loss was minimal.
--- NOTE | 2020-10-27 13:16 | ROOR ---
Patient Name: Kinga Peña Procedure Date: 10/27/2020 12:14 PM Date of : 1960 Age: 60 Room: [facility] Gender: Female Note Status: Finalized Procedure: Colonoscopy Indications: High risk colon cancer surveillance: Personal history of colon cancer, Incidental - Abnormal CT of the GI tract Providers: Kyle Sorenson MD Referring MD: Nicole HUITRON DO Requesting Provider: Medicines: Monitored Anesthesia Care Complications: No immediate complications. Procedure: Pre-Anesthesia Assessment: - Prior to the procedure, a History and Physical was performed, and patient medications and allergies were reviewed. The patient is competent. The risks and benefits of the procedure and the sedation options and risks were discussed with the patient. All questions were answered and informed consent was obtained. Patient identification and proposed procedure were verified by the physician, the nurse and the anesthesiologist in the procedure room. Mental Status Examination: alert and oriented. Airway Examination: normal oropharyngeal airway and neck mobility. Respiratory Examination: clear to auscultation. Prophylactic Antibiotics: The patient does not require prophylactic antibiotics. Prior Anticoagulants: The patient has taken no previous anticoagulant or antiplatelet agents. ASA Grade Assessment: III - A patient with severe systemic disease. After reviewing the risks and benefits, the patient was deemed in satisfactory condition to undergo the procedure. The anesthesia plan was to use monitored anesthesia care (MAC). Immediately prior to administration of medications, the patient was re-assessed for adequacy to receive sedatives. The heart rate, respiratory rate, oxygen saturations, blood pressure, adequacy of pulmonary ventilation, and response to care were monitored throughout the procedure. The physical status of the patient was re-assessed after the procedure. The Colonoscope was introduced through the anus and advanced to the terminal ileum, with identification of the appendiceal orifice and IC valve. The colonoscopy was performed without difficulty. The patient tolerated the procedure well. The quality of the bowel preparation was good. The terminal ileum, ileocecal valve, appendiceal orifice, and rectum were photographed. Scope insertion time was 2 minutes. Scope withdrawal time was 10 minutes. The total duration of the procedure was 12 minutes. Findings: The perianal and digital rectal examinations were normal. The terminal ileum appeared normal. Two sessile polyps were found in the descending colon and ascending colon. The polyps were 8 to 10 mm in size. These polyps were removed with a hot snare. Resection and retrieval were complete. Verification of patient identification for the specimen was done by the physician and nurse using the patient's name, date and medical record number. Estimated blood loss was minimal. There was evidence of a prior end-to-end colo-colonic anastomosis in the rectum. This was patent and was characterized by healthy appearing mucosa. The anastomosis was not traversed. Non-bleeding external and internal hemorrhoids were found during retroflexion. The hemorrhoids were medium-sized. Impression: - The examined portion of the ileum was normal. - Two 8 to 10 mm polyps in the descending colon and in the ascending colon, removed with a hot snare. Resected and retrieved. - Patent end-to-end colo-colonic anastomosis, characterized by healthy appearing mucosa. - Non-bleeding external and internal hemorrhoids. Recommendation: - Patient has a contact number available for emergencies. The signs and symptoms of potential delayed complications were discussed with the patient. Return to normal activities tomorrow. Written discharge instructions were provided to the patient. - High fiber diet. - Continue present medications. - Use fiber, for example Citrucel, Fibercon, Konsyl or Metamucil. - Await pathology results. - Repeat colonoscopy in 3 - 5 years for surveillance based on pathology results. - Telephone GI clinic for pathology results in 2 weeks. - Return to primary care physician. Procedure Code(s): --- Professional --- 78502, Colonoscopy, flexible; with removal of tumor(s), polyp(s), or other lesion(s) by snare technique Diagnosis Code(s): --- Professional --- Z85.038, Personal history of other malignant neoplasm of large intestine K64.8, Other hemorrhoids K63.5, Polyp of colon Z98.0, Intestinal bypass and anastomosis status CPT copyright 2019 [employer]. All rights reserved. The codes documented in this report are preliminary and upon spanish speaking nanny review may be revised to meet current compliance requirements. Kyle Sorenson MD Kyle Sorenson MD 10/27/2020 1:15:57 PM Electronically signed by Kyle Sorenson MD Number of Addenda: 0 Note Initiated On: 10/27/2020 12:14 PM Estimated Blood Loss: Estimated blood loss was minimal.
[2020-10-27 13:26] VITALS: BP 135/79
== END 2020-10-27 13:27 | disposition home or self-care (01) ==
LOC: M OPP 11:37
PROVIDERS: ATTEND Internal Medicine Gastroenterology
DX: D12.6 Benign neoplasm of colon, unspecified (principal); Z85.038 Personal history of other malignant neoplasm of large intestine; Z85.118 Personal history of other malignant neoplasm of bronchus and lung; Z98.0 Intestinal bypass and anastomosis status; K64.8 Other hemorrhoids; Z80.0 Family history of malignant neoplasm of digestive organs; Z08 Encounter for follow-up examination after completed treatment for malignant neoplasm; K29.70 Gastritis, unspecified, without bleeding; K76.6 Portal hypertension; K31.7 Polyp of stomach and duodenum; K74.69 Other cirrhosis of liver; R93.3 Abnormal findings on diagnostic imaging of other parts of digestive tract; Z79.899 Other long term (current) drug therapy; Z92.3 Personal history of irradiation; Z92.21 Personal history of antineoplastic chemotherapy
CPT/HCPCS: 43239; 45385; 88305; J3010

== ENCOUNTER → 2020-10-31 | Outpatient (CLI) | payer MEDICARE ==
[~2020-10-31] MED LIST changes: +GASTROGRAFIN SOLUTION 30ML (Q9963) As Ordered ONE; +ISOVUE-370 76% 100ML VIAL As Ordered ONE; -NS 1,000 ML IV ONE
--- NOTE | 2020-10-31 13:48 | REP ---
INDICATION: COLON CA FOLLOW UP COMPARISON: 05/06/2020 TECHNIQUE: Axial contrast enhanced images from the thoracic inlet to the upper abdomen 100 ml Isovue 370 intravenous contrast material followed by CT of the abdomen and pelvis. This CT examination was performed using the following dose reduction techniques: Automated exposure control, adjustment of mA and/or kv according to the patient's size, and use of iterative reconstruction technique. FINDINGS: Scattered metastatic foci are identified bilaterally which measure up to roughly 9 mm and appear essentially stable when compared with prior examination. While few lesions appear slightly more prominent than prior examination, this may be secondary to variation in technique as there does not appear to be an increase in quantity of lesions. The only single nodule which is of concern measures roughly 8 mm and is adjacent to an area of linear scarring in the right lower lobe (series 204; image 56). There is no associated obvious adenopathy or pleural effusion. No acute consolidation. Tracheobronchial tree is patent. Area of linear scarring in the right lower lung zone again noted. Further evaluation of the mediastinum demonstrates normal stable thoracic aorta and heart/pericardium. The pulmonary arteries are prominent and dilated which is unchanged, but again concerning for underlying pulmonary arterial hypertension. Surrounding musculoskeletal structures are intact and without acute osseous abnormality. Kcritq-P-[id number] identified with tip in the SVC. IMPRESSION: 1. Known metastatic foci which appear primarily stable and without increase in quantity noted. However, there is a single nodule related to an area of scarring in the right lower lobe which does appear slightly more prominent and may warrant short-term 3 to 6 month follow-up. 2. Chronically enlarged pulmonary arteries consistent with pulmonary artery hypertension. <Electronically signed by Francisco Flower > 10/31/20 0047
--- NOTE | 2020-10-31 13:55 | REP ---
INDICATION: COLON CA FOLLOW UP. COMPARISON: None TECHNIQUE: Axial contrast-enhanced images from the lung bases to the pubic symphysis using oral and 100 cc Isovue 370 intravenous contrast material. Coronal and sagittal reformations obtained along with arterial phase images of the abdomen. This CT examination was performed using the following dose reduction techniques: Automated exposure control, adjustment of mA and/or kv according to the patient's size, and the use of iterative reconstruction technique. FINDINGS: Evidence for cirrhosis and portal hypertension including splenomegaly and patent umbilical vein as well as scattered portosystemic shunts and esophageal varices again noted and relatively similar to prior examination. A focal area of pronounced heterogeneity along the posterior aspect of the right hepatic lobe is again identified but which may now demonstrate increased irregular biliary ducts and subtle enhancement appearing more prominent than prior examination. Underlying malignancy cannot definitively be excluded. Pancreas, bilateral adrenal glands, and kidneys are essentially normal/stable. Cholelithiasis noted without acute cholecystitis. The enteric system is without obstruction or acute inflammatory process prior partial sigmoid resection again noted and appears relatively stable. Pelvis demonstrates normal bladder and age-appropriate uterus/adnexa. No ascites. No free air. No adenopathy. Abdominal aorta without aneurysm or dissection. Musculoskeletal structures demonstrate stable degenerative changes. IMPRESSION: 1. Continued evidence for cirrhosis with portal hypertension. 2. Known irregular focal area within the right hepatic lobe appears slightly more concerning. Contrast-enhanced MRI of the abdomen should be considered to exclude the possibility of possible early malignancy. 3. No further acute process. No evidence for metastatic disease related to prior colon cancer. 4. Chronic stable changes. <Electronically signed by Francisco Flower > 10/31/20 [id number]
== END ==
LOC: M RAD 11:30
PROVIDERS: ATTEND Internal Medicine Medical Oncology
DX: C18.9 Malignant neoplasm of colon, unspecified (principal); R91.8 Other nonspecific abnormal finding of lung field
CPT/HCPCS: 71260; 74177; Q9963; Q9967

== ENCOUNTER → 2020-11-11 | Outpatient (CLI) | payer MEDICARE ==
[~2020-11-11] MED LIST changes: +CEPH500T PO; +FAMO1TAB11; -GASTROGRAFIN SOLUTION 30ML (Q9963) As Ordered ONE; -ISOVUE-370 76% 100ML VIAL As Ordered ONE
[2020-11-11 15:42] LABS: BASO % 0.6 % (0.0-1.0); EOS # 0.2 10^3/uL (0.0-0.5); EOS % 2.6 % (0.0-3.0); HEMOGLOBIN 12.8 g/dl (12.0-15.5); LYMPH % 15.2 % (24.0-44.0); MEAN CORPUSCULAR HEMOGLOBIN 29.2 pg (27.0-33.0); MEAN CORPUSCULAR HGB CONC 32.8 g/dl (32.0-36.5); MONO # 0.5 10^3/uL (0.0-0.8); NEUTROPHILS # 4.7 10^3/uL (1.5-8.5); NEUTROPHILS % 73.3 % (36.0-66.0); PLATELET COUNT, AUTOMATED 108 10^3/uL (150-450); RED BLOOD COUNT 4.38 10^6/uL (4.00-5.40); WHITE BLOOD COUNT 6.5 10^3/uL (4.0-10.0)
[2020-11-11 16:15] LABS: ALBUMIN 3.9 GM/DL (3.2-5.2); ALT/SGPT 25 U/L (12-78); BILIRUBIN,TOTAL 1.4 MG/DL (0.2-1.0); BLOOD UREA NITROGEN 10 MG/DL (7-18); CALCIUM LEVEL 9.1 MG/DL (8.5-10.1); CARBON DIOXIDE LEVEL 26 MEQ/L (21-32); CHLORIDE LEVEL 110 MEQ/L (98-107); GLOMERULAR FILTRATION RATE > 60.0 (>51); GLUCOSE, FASTING 94 MG/DL (70-100); POTASSIUM SERUM 3.8 MEQ/L (3.5-5.1); SODIUM LEVEL 141 MEQ/L (136-145); TOTAL PROTEIN 6.8 GM/DL (6.4-8.2)
== END ==
LOC: M LAB 15:13
PROVIDERS: ATTEND Internal Medicine Medical Oncology
DX: C18.9 Malignant neoplasm of colon, unspecified (principal)

== ENCOUNTER → 2020-11-24 | Outpatient (CLI) | payer MEDICARE ==
[~2020-11-24] MED LIST changes: +PROHANCE 279.3MG/ML 15ML VIAL As Ordered ONE
--- NOTE | 2020-11-24 16:47 | REP ---
INDICATION: COLON CA. COMPARISON: MRI 06/09/[address] 10/31/2020. TECHNIQUE: Multiple sequences obtained in the axial, multiple sequences obtained in the axial coronal planes prior to and following intravenous administration of 15 mL ProHance. FINDINGS: Once again there are findings of cirrhosis of the liver. In the posterior segment of the right lobe there is again ill-defined high signal on T2 weighted images with geographic increased enhancement on postcontrast images. No enhancing mass or suspicious enhancement is seen in the liver. There are again tubular structures in the posterior segment of the right lobe of the liver which are felt to represent thrombosed portal venous branches in this region. No abnormal internal enhancement is seen. Dilated portal veins are consistent with portal hypertension. There is again evidence of recanalization of the umbilical vein. Gallstones are seen in the dependent portion of the gallbladder, which demonstrates no wall edema. The spleen is enlarged. The adrenal glands are normal. No pancreatic mass or pancreatic duct dilatation is seen. The common bile duct is normal in caliber. Subcentimeter cystic structures are seen in both kidneys. There is no hydronephrosis. No significantly enlarged lymph nodes are seen. No free fluid is seen. IMPRESSION: The liver has a cirrhotic appearance and there is evidence for portal hypertension with splenomegaly. There is again evidence for thrombosis of peripheral portal vein branches in the posterior segment of the right lobe of the liver. No suspicious enhancing liver mass is seen. <Electronically signed by Nahun Byrnes > 11/24/20 [id number]
== END ==
LOC: M RAD 14:15
PROVIDERS: ATTEND Internal Medicine Medical Oncology
DX: C18.9 Malignant neoplasm of colon, unspecified (principal); K74.60 Unspecified cirrhosis of liver
CPT/HCPCS: 74183; A9576

== ENCOUNTER → 2020-11-26 | Outpatient (CLI) | payer MEDICARE ==
[~2020-11-26] MED LIST changes: -PROHANCE 279.3MG/ML 15ML VIAL As Ordered ONE
[2020-11-26 15:14] LABS: BASO % 0.4 % (0.0-1.0); EOS # 0.1 10^3/uL (0.0-0.5); EOS % 1.9 % (0.0-3.0); HEMATOCRIT 41.9 % (36.0-47.0); HEMOGLOBIN 13.5 g/dl (12.0-15.5); LYMPH # 0.8 10^3/uL (1.5-5.0); LYMPH % 11.2 % (24.0-44.0); MEAN CORPUSCULAR HEMOGLOBIN 29.3 pg (27.0-33.0); MEAN CORPUSCULAR HGB CONC 32.2 g/dl (32.0-36.5); MEAN CORPUSCULAR VOLUME 91.1 fl (80.0-96.0); MONO # 0.4 10^3/uL (0.0-0.8); MONO % 5.5 % (2.0-8.0); NEUTROPHILS # 5.8 10^3/uL (1.5-8.5); NEUTROPHILS % 80.6 % (36.0-66.0); WHITE BLOOD COUNT 7.2 10^3/uL (4.0-10.0)
[2020-11-26 15:19] LABS: PLATELET COUNT, AUTOMATED 91 10^3/uL (150-450)
[2020-11-26 15:43] LABS: ALT/SGPT 29 U/L (12-78); BILIRUBIN,TOTAL 1.6 MG/DL (0.2-1.0); BLOOD UREA NITROGEN 15 MG/DL (7-18); CARBON DIOXIDE LEVEL 25 MEQ/L (21-32); CHLORIDE LEVEL 111 MEQ/L (98-107); CREATININE FOR GFR 0.71 MG/DL (0.55-1.30); GLOMERULAR FILTRATION RATE > 60.0 (>51); GLUCOSE, FASTING 96 MG/DL (70-100); POTASSIUM SERUM 3.9 MEQ/L (3.5-5.1); SODIUM LEVEL 141 MEQ/L (136-145); TOTAL PROTEIN 6.8 GM/DL (6.4-8.2)
== END ==
LOC: M LAB 13:39
PROVIDERS: ATTEND Internal Medicine Medical Oncology
DX: C18.9 Malignant neoplasm of colon, unspecified (principal)

== ENCOUNTER → 2020-12-26 | Outpatient (CLI) | payer MEDICARE ==
[~2020-12-26] MED LIST changes: -FAMO1TAB11; +FAMO1TAB11 PO
[2020-12-26 13:56] LABS: BASO % 0.5 % (0.0-1.0); EOS # 0.1 10^3/uL (0.0-0.5); EOS % 2.1 % (0.0-3.0); HEMATOCRIT 41.5 % (36.0-47.0); HEMOGLOBIN 13.6 g/dl (12.0-15.5); LYMPH # 0.9 10^3/uL (1.5-5.0); LYMPH % 15.5 % (24.0-44.0); MEAN CORPUSCULAR HGB CONC 32.8 g/dl (32.0-36.5); MEAN CORPUSCULAR VOLUME 88.5 fl (80.0-96.0); MONO # 0.4 10^3/uL (0.0-0.8); MONO % 6.7 % (2.0-8.0); NEUTROPHILS # 4.4 10^3/uL (1.5-8.5); NEUTROPHILS % 74.9 % (36.0-66.0); RED BLOOD COUNT 4.69 10^6/uL (4.00-5.40); WHITE BLOOD COUNT 5.8 10^3/uL (4.0-10.0)
[2020-12-26 13:57] LABS: PLATELET COUNT, AUTOMATED 94 10^3/uL (150-450)
[2020-12-26 14:20] LABS: ALBUMIN 4.1 GM/DL (3.2-5.2); ALT/SGPT 30 U/L (12-78); BLOOD UREA NITROGEN 10 MG/DL (7-18); CALCIUM LEVEL 9.3 MG/DL (8.5-10.1); CARBON DIOXIDE LEVEL 26 MEQ/L (21-32); CHLORIDE LEVEL 109 MEQ/L (98-107); CREATININE FOR GFR 0.84 MG/DL (0.55-1.30); GLOMERULAR FILTRATION RATE > 60.0 (>51); GLUCOSE, FASTING 109 MG/DL (70-100); MAGNESIUM LEVEL 1.9 MG/DL (1.8-2.4); SODIUM LEVEL 142 MEQ/L (136-145); TOTAL PROTEIN 7.1 GM/DL (6.4-8.2)
== END ==
LOC: M LAB 13:05
PROVIDERS: ATTEND Internal Medicine Medical Oncology
DX: C18.9 Malignant neoplasm of colon, unspecified (principal)

== ENCOUNTER → 2021-01-22 | Outpatient (CLI) | payer MEDICARE ==
[2021-01-22 08:47] LABS: BASO % 0.7 % (0.0-1.0); EOS # 0.1 10^3/uL (0.0-0.5); EOS % 2.8 % (0.0-3.0); HEMATOCRIT 39.8 % (36.0-47.0); HEMOGLOBIN 12.9 g/dl (12.0-15.5); LYMPH # 0.8 10^3/uL (1.5-5.0); LYMPH % 17.6 % (24.0-44.0); MEAN CORPUSCULAR HEMOGLOBIN 29.5 pg (27.0-33.0); MEAN CORPUSCULAR HGB CONC 32.4 g/dl (32.0-36.5); MEAN CORPUSCULAR VOLUME 90.9 fl (80.0-96.0); MONO # 0.4 10^3/uL (0.0-0.8); MONO % 8.7 % (2.0-8.0); NEUTROPHILS # 3.2 10^3/uL (1.5-8.5); RED BLOOD COUNT 4.38 10^6/uL (4.00-5.40); WHITE BLOOD COUNT 4.6 10^3/uL (4.0-10.0)
[2021-01-22 08:53] LABS: PLATELET COUNT, AUTOMATED 91 10^3/uL (150-450)
[2021-01-22 09:19] LABS: ALBUMIN 3.8 GM/DL (3.2-5.2); ALT/SGPT 35 U/L (12-78); BILIRUBIN,TOTAL 1.2 MG/DL (0.2-1.0); BLOOD UREA NITROGEN 9 MG/DL (7-18); CARBON DIOXIDE LEVEL 26 MEQ/L (21-32); CHLORIDE LEVEL 115 MEQ/L (98-107); CREATININE FOR GFR 0.73 MG/DL (0.55-1.30); GLOMERULAR FILTRATION RATE > 60.0 (>51); GLUCOSE, FASTING 115 MG/DL (70-100); SODIUM LEVEL 146 MEQ/L (136-145); TOTAL PROTEIN 6.4 GM/DL (6.4-8.2)
--- NOTE | 2021-01-22 11:25 | REP ---
INDICATION: ELEVATED BILIRUBIN. COMPARISON: Ultrasound 12/13/2016. MRI 11/24/2020. TECHNIQUE: Real-time sonographic evaluation of right upper quadrant performed. FINDINGS: Multiple mobile gallstones are again seen in the gallbladder. There is no gallbladder wall thickening or pericholecystic fluid.. There is no intrahepatic or extrahepatic biliary dilatation, common bile duct measures 6 mm in maximum diameter. Liver has a cirrhotic appearance. Heterogeneous increased echotexture is seen posteriorly in the right lobe of the liver, the area measures approximately 7.3 x 6.9 x 5.3 cm. This corresponds to the heterogeneously enhancing area seen on the recent MRI. The pancreas demonstrates homogeneous echotexture with no gross mass. The right kidney demonstrates no hydronephrosis, with a normal size of 11.8 cm in length. There is a patent umbilical vein. The main portal vein is somewhat dilated, measuring 16 mm.No free fluid is seen. IMPRESSION: Multiple gallstones in the gallbladder with no gallbladder wall thickening, pericholecystic fluid or biliary dilatation. Cirrhotic liver with evidence of portal hypertension. <Electronically signed by Nahun Byrnes > 01/22/21 1121
== END ==
LOC: M RAD 06:36
PROVIDERS: ATTEND Internal Medicine Medical Oncology
DX: K74.60 Unspecified cirrhosis of liver (principal); K76.6 Portal hypertension; K80.20 Calculus of gallbladder without cholecystitis without obstruction; E80.7 Disorder of bilirubin metabolism, unspecified

== ENCOUNTER → 2021-03-16 | Outpatient (CLI) | payer MEDICARE ==
[~2021-03-16] MED LIST changes: +DEXA2TA PO
--- NOTE | 2021-03-17 11:18 | REP ---
INDICATION: RESTAGING COLON CA. COMPARISON: Latest prior PET-CT 09/19/2018. CT chest abdomen pelvis 10/31/2020 the latest prior. MRI abdomen 11/24/2020. Liver ultrasound 01/22/2021. TECHNIQUE: After the intravenous administration of 8.67 mCi of FDG 18 triplane whole-body PET-CT was performed from the skull base to the mid thigh. FINDINGS: Hypermetabolic activity seen previously in the liver right lobe near the dome is again identified and today having a maximal SUV value of 5.58. Previously, this was 6.71. No additional abnormal hypermetabolic foci are seen within the neck, chest, abdomen, or pelvis. There is diffuse axial and appendicular skeletal hypermetabolism. IMPRESSION: There is essentially unchanged hypermetabolism in the liver as described above. No suspicious hepatic lesions were seen on the MRI examination of 11/24/2020. The diffuse hypermetabolism seen throughout the osseous structures is most consistent with chemo reactive change. History given to me is that the patient is currently on chemotherapy. <Electronically signed by Peter Nation > 03/17/21 1284
== END ==
LOC: M PLARAD 14:02
PROVIDERS: ATTEND Internal Medicine Medical Oncology
DX: C18.8 Malignant neoplasm of overlapping sites of colon (principal)
CPT/HCPCS: 78815; A9552

== ENCOUNTER → 2021-03-21 | Outpatient (CLI) | payer MEDICARE ==
[2021-03-21 14:40] LABS: BASO # 0.1 10^3/uL (0.0-0.2); BASO % 0.8 % (0.0-1.0); EOS # 0.3 10^3/uL (0.0-0.5); EOS % 3.5 % (0.0-3.0); HEMATOCRIT 36.4 % (36.0-47.0); HEMOGLOBIN 11.7 g/dl (12.0-15.5); LYMPH # 0.9 10^3/uL (1.5-5.0); LYMPH % 11.8 % (24.0-44.0); MEAN CORPUSCULAR HEMOGLOBIN 29.7 pg (27.0-33.0); MEAN CORPUSCULAR HGB CONC 32.1 g/dl (32.0-36.5); MEAN CORPUSCULAR VOLUME 92.4 fl (80.0-96.0); MONO # 0.5 10^3/uL (0.0-0.8); MONO % 5.8 % (2.0-8.0); NEUTROPHILS # 5.9 10^3/uL (1.5-8.5); NEUTROPHILS % 74.1 % (36.0-66.0); RED BLOOD COUNT 3.94 10^6/uL (4.00-5.40); WHITE BLOOD COUNT 7.9 10^3/uL (4.0-10.0)
[2021-03-21 14:42] LABS: PLATELET COUNT, AUTOMATED 74 10^3/uL (150-450)
[2021-03-21 14:44] LABS: ALBUMIN 3.6 GM/DL (3.2-5.2); ALT/SGPT 29 U/L (12-78); BILIRUBIN,TOTAL 0.7 MG/DL (0.2-1.0); BLOOD UREA NITROGEN 9 MG/DL (7-18); CALCIUM LEVEL 8.5 MG/DL (8.5-10.1); CARBON DIOXIDE LEVEL 27 MEQ/L (21-32); CHLORIDE LEVEL 114 MEQ/L (98-107); CREATININE FOR GFR 0.88 MG/DL (0.55-1.30); GLOMERULAR FILTRATION RATE > 60.0 (>51); GLUCOSE, FASTING 101 MG/DL (70-100); POTASSIUM SERUM 4.4 MEQ/L (3.5-5.1); SODIUM LEVEL 144 MEQ/L (136-145); TOTAL PROTEIN 6.3 GM/DL (6.4-8.2)
== END ==
LOC: M LAB 13:21
PROVIDERS: ATTEND Internal Medicine Medical Oncology
DX: C18.9 Malignant neoplasm of colon, unspecified (principal)

== ENCOUNTER → 2021-05-23 | Outpatient (CLI) | payer MEDICARE ==
[~2021-05-23] MED LIST changes: +CEPH500C PO; +ONDA-84 PO; -ONDA8TAB10 PO; -PROC10TA4 PO; +PROC10TA5 PO
[2021-05-23 14:26] LABS: HEMATOCRIT 40.9 % (36.0-47.0); HEMOGLOBIN 13.2 g/dl (12.0-15.5); MEAN CORPUSCULAR HEMOGLOBIN 30.4 pg (27.0-33.0); MEAN CORPUSCULAR HGB CONC 32.3 g/dl (32.0-36.5); MEAN CORPUSCULAR VOLUME 94.2 fl (80.0-96.0); PLATELET COUNT, AUTOMATED 112 10^3/uL (150-450); RED BLOOD COUNT 4.34 10^6/uL (4.00-5.40); WHITE BLOOD COUNT 7.3 10^3/uL (4.0-10.0)
[2021-05-23 14:54] LABS: ALT/SGPT 143 U/L (12-78); BILIRUBIN,TOTAL 1.6 MG/DL (0.2-1.0); BLOOD UREA NITROGEN 7 MG/DL (7-18); CALCIUM LEVEL 9.6 MG/DL (8.5-10.1); CARBON DIOXIDE LEVEL 27 MEQ/L (21-32); CHLORIDE LEVEL 111 MEQ/L (98-107); CREATININE FOR GFR 0.69 MG/DL (0.55-1.30); GLOMERULAR FILTRATION RATE > 60.0 (>51); GLUCOSE, FASTING 113 MG/DL (70-100); POTASSIUM SERUM 3.6 MEQ/L (3.5-5.1); SODIUM LEVEL 144 MEQ/L (136-145); TOTAL PROTEIN 6.7 GM/DL (6.4-8.2)
== END ==
LOC: M LAB 13:50
PROVIDERS: ATTEND Internal Medicine Medical Oncology
DX: C18.7 Malignant neoplasm of sigmoid colon (principal); C78.7 Secondary malignant neoplasm of liver and intrahepatic bile duct; C78.01 Secondary malignant neoplasm of right lung

== ENCOUNTER → 2021-07-10 | Outpatient (CLI) | payer MEDICARE ==
[~2021-07-10] MED LIST changes: +GASTROGRAFIN SOLUTION 30ML (Q9963) As Ordered ONE; +ISOVUE-370 76% 100ML VIAL As Ordered ONE
== END ==
LOC: M RAD 12:59
PROVIDERS: ATTEND Internal Medicine Medical Oncology
DX: R91.8 Other nonspecific abnormal finding of lung field (principal); C18.9 Malignant neoplasm of colon, unspecified
CPT/HCPCS: 71260; 74177; Q9963; Q9967

== ENCOUNTER → 2021-10-29 | Outpatient (REF) | payer MEDICARE ==
[~2021-10-29] MED LIST changes: -GASTROGRAFIN SOLUTION 30ML (Q9963) As Ordered ONE; -ISOVUE-370 76% 100ML VIAL As Ordered ONE; +K-TA10TA PO; +NIRM1TAB PO
== END ==
LOC: M LAB REF 16:15
PROVIDERS: ATTEND Internal Medicine Medical Oncology
DX: C18.9 Malignant neoplasm of colon, unspecified (principal)

== ENCOUNTER → 2021-11-16 | Outpatient (CLI) | payer MEDICARE ==
[2021-11-16 17:26] LABS: BASO % 0.9 % (0.0-1.0); EOS # 0.2 10^3/uL (0.0-0.5); EOS % 5.7 % (0.0-3.0); HEMATOCRIT 38.6 % (36.0-47.0); HEMOGLOBIN 12.6 g/dl (12.0-15.5); LYMPH # 0.9 10^3/uL (1.5-5.0); LYMPH % 24.9 % (24.0-44.0); MEAN CORPUSCULAR HEMOGLOBIN 29.9 pg (27.0-33.0); MEAN CORPUSCULAR HGB CONC 32.6 g/dl (32.0-36.5); MEAN CORPUSCULAR VOLUME 91.7 fl (80.0-96.0); MONO # 0.3 10^3/uL (0.0-0.8); MONO % 9.7 % (2.0-8.0); NEUTROPHILS % 58.2 % (36.0-66.0); PLATELET COUNT, AUTOMATED 116 10^3/uL (150-450); RED BLOOD COUNT 4.21 10^6/uL (4.00-5.40); WHITE BLOOD COUNT 3.5 10^3/uL (4.0-10.0)
[2021-11-16 17:46] LABS: ALT/SGPT 23 U/L (12-78); BILIRUBIN,TOTAL 0.9 MG/DL (0.2-1.0); BLOOD UREA NITROGEN 6 MG/DL (7-18); CARBON DIOXIDE LEVEL 25 MEQ/L (21-32); CHLORIDE LEVEL 113 MEQ/L (98-107); GLOMERULAR FILTRATION RATE > 60.0 (>45); GLUCOSE, FASTING 90 MG/DL (70-100); MAGNESIUM LEVEL 2.1 MG/DL (1.8-2.4); POTASSIUM SERUM 4.3 MEQ/L (3.5-5.1); SODIUM LEVEL 144 MEQ/L (136-145)
== END ==
LOC: M LAB 16:38
PROVIDERS: ATTEND Internal Medicine Medical Oncology
DX: C18.9 Malignant neoplasm of colon, unspecified (principal)

== ENCOUNTER → 2021-12-03 | Outpatient (CLI) | payer MEDICARE ==
[~2021-12-03] MED LIST changes: +GASTROGRAFIN SOLUTION 30ML (Q9963) As Ordered ONE; +ISOVUE-370 76% 100ML VIAL As Ordered ONE
== END ==
LOC: M RAD 14:20
PROVIDERS: ATTEND Internal Medicine Medical Oncology
DX: C18.9 Malignant neoplasm of colon, unspecified (principal)
CPT/HCPCS: 71260; 74177; Q9963; Q9967

== ENCOUNTER → 2021-12-28 | Outpatient (CLI) | payer MEDICAID, MEDICARE, SELFPAY ==
[~2021-12-28] MED LIST changes: -GASTROGRAFIN SOLUTION 30ML (Q9963) As Ordered ONE; +IBUP200C25 PO; -ISOVUE-370 76% 100ML VIAL As Ordered ONE
[2021-12-28 13:54] LABS: BASO # 0.1 10^3/uL (0.0-0.2); BASO % 0.8 % (0.0-1.0); EOS # 0.2 10^3/uL (0.0-0.5); EOS % 2.8 % (0.0-3.0); HEMATOCRIT 36.6 % (36.0-47.0); HEMOGLOBIN 11.8 g/dl (12.0-15.5); LYMPH # 0.8 10^3/uL (1.5-5.0); LYMPH % 13.6 % (24.0-44.0); MEAN CORPUSCULAR HEMOGLOBIN 29.9 pg (27.0-33.0); MEAN CORPUSCULAR HGB CONC 32.2 g/dl (32.0-36.5); MEAN CORPUSCULAR VOLUME 92.7 fl (80.0-96.0); MONO # 0.6 10^3/uL (0.0-0.8); MONO % 9.4 % (2.0-8.0); NEUTROPHILS # 4.4 10^3/uL (1.5-8.5); NEUTROPHILS % 72.6 % (36.0-66.0); PLATELET COUNT, AUTOMATED 117 10^3/uL (150-450); RED BLOOD COUNT 3.95 10^6/uL (4.00-5.40); WHITE BLOOD COUNT 6.1 10^3/uL (4.0-10.0)
[2021-12-28 14:23] LABS: CK-MB VALUE MASS 1.9 NG/ML (<3.6); MB/CK RELATIVE INDEX 2.35 (< OR =4)
== END ==
LOC: M LAB 12:53
PROVIDERS: ATTEND Internal Medicine Medical Oncology
DX: C18.7 Malignant neoplasm of sigmoid colon (principal)

== ENCOUNTER → 2022-02-23 | Outpatient (CLI) | payer MEDICAID, MEDICARE ==
[2022-02-23 15:41] LABS: BASO # 0.1 10^3/uL (0.0-0.2); BASO % 0.7 % (0.0-1.0); EOS # 0.2 10^3/uL (0.0-0.5); EOS % 2.3 % (0.0-3.0); HEMATOCRIT 38.3 % (36.0-47.0); HEMOGLOBIN 12.5 g/dl (12.0-15.5); LYMPH # 0.9 10^3/uL (1.5-5.0); LYMPH % 9.2 % (24.0-44.0); MEAN CORPUSCULAR HEMOGLOBIN 30.9 pg (27.0-33.0); MEAN CORPUSCULAR HGB CONC 32.6 g/dl (32.0-36.5); MEAN CORPUSCULAR VOLUME 94.8 fl (80.0-96.0); MONO # 0.4 10^3/uL (0.0-0.8); MONO % 4.1 % (2.0-8.0); NEUTROPHILS # 7.6 10^3/uL (1.5-8.5); NEUTROPHILS % 82.8 % (36.0-66.0); RED BLOOD COUNT 4.04 10^6/uL (4.00-5.40); WHITE BLOOD COUNT 9.2 10^3/uL (4.0-10.0)
[2022-02-23 15:46] LABS: PLATELET COUNT, AUTOMATED 83 10^3/uL (150-450)
[2022-02-23 16:08] LABS: ALBUMIN 3.8 GM/DL (3.2-5.2); ALT/SGPT 30 U/L (12-78); BILIRUBIN,TOTAL 0.9 MG/DL (0.2-1.0); BLOOD UREA NITROGEN 7 MG/DL (7-18); CALCIUM LEVEL 8.9 MG/DL (8.8-10.2); CARBON DIOXIDE LEVEL 24 MEQ/L (21-32); CHLORIDE LEVEL 115 MEQ/L (98-107); CREATININE FOR GFR 0.66 MG/DL (0.55-1.30); FERRITIN 76 NG/ML (8-252); GLOMERULAR FILTRATION RATE > 60.0 (>45); GLUCOSE, FASTING 96 MG/DL (70-100); IRON (FE) 199 UG/DL (50-170); PERCENT SATURATION 67.9 % (13.2-45.0); POTASSIUM SERUM 3.8 MEQ/L (3.5-5.1); SODIUM LEVEL 144 MEQ/L (136-145); TOTAL IRON BINDING CAPACITY 293 UG/DL (250-450); TOTAL PROTEIN 6.4 GM/DL (6.4-8.2)
== END ==
LOC: M LAB 15:03
PROVIDERS: ATTEND Internal Medicine Medical Oncology
DX: C18.9 Malignant neoplasm of colon, unspecified (principal)

== ENCOUNTER → 2022-03-02 | Outpatient (CLI) | payer MEDICARE ==
[~2022-03-02] MED LIST changes: +GASTROGRAFIN SOLUTION 30ML As Ordered ONE; +ISOVUE-370 76% 100ML VIAL As Ordered ONE
== END ==
LOC: M RAD 10:25
PROVIDERS: ATTEND Internal Medicine Medical Oncology
DX: C18.9 Malignant neoplasm of colon, unspecified (principal)
CPT/HCPCS: 36415; 71260; 74177; 80053; 82378; 82728; 83520; 83550; 85025; Q9963; Q9967

== ENCOUNTER → 2022-03-02 | Outpatient (CLI) | payer MEDICARE ==
[~2022-03-02] MED LIST changes: -GASTROGRAFIN SOLUTION 30ML As Ordered ONE; -ISOVUE-370 76% 100ML VIAL As Ordered ONE
[2022-03-02 11:21] LABS: BASO % 0.6 % (0.0-1.0); EOS # 0.1 10^3/uL (0.0-0.5); EOS % 2.1 % (0.0-3.0); HEMATOCRIT 37.8 % (36.0-47.0); HEMOGLOBIN 12.1 g/dl (12.0-15.5); LYMPH # 0.7 10^3/uL (1.5-5.0); LYMPH % 10.7 % (24.0-44.0); MEAN CORPUSCULAR HEMOGLOBIN 30.4 pg (27.0-33.0); MONO # 0.5 10^3/uL (0.0-0.8); MONO % 8.6 % (2.0-8.0); NEUTROPHILS # 4.9 10^3/uL (1.5-8.5); NEUTROPHILS % 77.5 % (36.0-66.0); PLATELET COUNT, AUTOMATED 100 10^3/uL (150-450); RED BLOOD COUNT 3.98 10^6/uL (4.00-5.40); WHITE BLOOD COUNT 6.3 10^3/uL (4.0-10.0)
[2022-03-02 12:08] LABS: ALBUMIN 3.7 GM/DL (3.2-5.2); ALT/SGPT 30 U/L (12-78); BILIRUBIN,TOTAL 0.9 MG/DL (0.2-1.0); BLOOD UREA NITROGEN 9 MG/DL (7-18); CALCIUM LEVEL 9.2 MG/DL (8.8-10.2); CARBON DIOXIDE LEVEL 25 MEQ/L (21-32); CHLORIDE LEVEL 112 MEQ/L (98-107); CREATININE FOR GFR 0.66 MG/DL (0.55-1.30); FERRITIN 65 NG/ML (8-252); GLOMERULAR FILTRATION RATE > 60.0 (>45); GLUCOSE, FASTING 90 MG/DL (70-100); IRON (FE) 48 UG/DL (50-170); PERCENT SATURATION 16.3 % (13.2-45.0); POTASSIUM SERUM 3.6 MEQ/L (3.5-5.1); SODIUM LEVEL 143 MEQ/L (136-145); TOTAL IRON BINDING CAPACITY 295 UG/DL (250-450); TOTAL PROTEIN 6.4 GM/DL (6.4-8.2)
== END ==
LOC: M LAB 10:36
PROVIDERS: ATTEND Internal Medicine Medical Oncology
DX: C18.9 Malignant neoplasm of colon, unspecified (principal)

== ENCOUNTER → 2022-04-15 | Outpatient (CLI) | payer MEDICARE | LOC: M WHC 13:39 | PROVIDERS: ATTEND Internal Medicine Medical Oncology | DX: Z12.31 Encounter for screening mammogram for malignant neoplasm of breast (principal) ==

== ENCOUNTER → 2022-05-19 | Outpatient (CLI) | payer MEDICAID, MEDICARE ==
[~2022-05-19] MED LIST changes: +GASTROGRAFIN SOLUTION 30ML As Ordered ONE; +ISOVUE-370 76% 100ML VIAL As Ordered ONE
== END ==
LOC: M RAD 14:39
PROVIDERS: ATTEND Nurse Practitioner
DX: R91.8 Other nonspecific abnormal finding of lung field (principal); K74.60 Unspecified cirrhosis of liver; K76.6 Portal hypertension; K80.20 Calculus of gallbladder without cholecystitis without obstruction; N28.1 Cyst of kidney, acquired; C18.9 Malignant neoplasm of colon, unspecified
CPT/HCPCS: 71260; 74177; Q9963; Q9967

== ENCOUNTER 2022-06-28 13:41 | Observation (INO) | payer MEDICARE ==
[~2022-06-28 13:41] MED LIST changes: +EMEN150S IV; -GASTROGRAFIN SOLUTION 30ML As Ordered ONE; +IRON65TA2 PO; -ISOVUE-370 76% 100ML VIAL As Ordered ONE; +MAGN400C2 PO; +MV-M1TAB13 PO; +PALO0.252 IV; +VITA-243 PO; +[UNRECOGNIZED DRUG - CODE] IV
[2022-06-28 20:10] LABS: RSV AMPLIFICATION NEGATIVE (NEGATIVE)
[2022-06-28] MEDS ORDERED: VITMTA PO (22:05)
[2022-06-28] MEDS ORDERED: HOME MED LIST COMPLETE! XX SCH (22:05)
[2022-06-28] MEDS ORDERED: LORA1TAB4 PO (22:05)
[2022-06-28] MEDS ORDERED: MAGN400T2 PO (22:05)
[2022-06-28] MEDS ORDERED: LORazepam 1 MG TAB PO PRN (23:20)
[2022-06-28] MEDS ORDERED: ursodioL 300MG CAP PO PRN (23:20)
[2022-06-28] MEDS ORDERED: PILL CUTTER 1 EACH XX PRN (23:30)
[2022-06-29 00:38] VITALS: BP 155/70
[2022-06-29] MEDS ORDERED: POTASSIUM CHLORIDE 10% LIQ 20MEQ/15ML UDC PO ONE (03:00)
[2022-06-29 07:04] LABS: ALBUMIN 3.1 G/DL (3.2-5.2); ALKALINE PHOSPHATASE 266 U/L (46-116); ALT/SGPT 135 U/L (7.0-40); AST/SGOT 121 U/L (<34); BILIRUBIN,TOTAL 9.9 MG/DL (0.3-1.2); BLOOD UREA NITROGEN 11 MG/DL (9-23); CALCIUM LEVEL 8.5 MG/DL (8.3-10.6); CARBON DIOXIDE LEVEL 22 MMOL/L (20-31); CHLORIDE LEVEL 112 MMOL/L (98-107); CREATININE FOR GFR 0.51 MG/DL (0.55-1.30); GLOMERULAR FILTRATION RATE > 60.0 (>45); GLUCOSE, FASTING 104 MG/DL (74-106); POTASSIUM SERUM 3.3 MMOL/L (3.5-5.1); SODIUM LEVEL 144 MMOL/L (136-145); TOTAL PROTEIN 5.7 G/DL (5.7-8.2)
[2022-06-29] MEDS ORDERED: FERROUS SULFATE 325MG TAB PO SCH (09:00)
[2022-06-29] MEDS ORDERED: ISOVUE-370 76% 100ML VIAL As Ordered ONE (12:08)
== END 2022-06-29 16:36 | disposition home or self-care (01) ==
LOC: M ED 13:41 → M ED INP 13:42 → ENRESERV 06-29 15:28 → CANRESERV 06-29 15:28
PROVIDERS: ADMIT Internal Medicine; ATTEND Internal Medicine
DX: K83.1 Obstruction of bile duct (principal); K76.89 Other specified diseases of liver; C19 Malignant neoplasm of rectosigmoid junction; Z90.49 Acquired absence of other specified parts of digestive tract; C78.7 Secondary malignant neoplasm of liver and intrahepatic bile duct; Z90.2 Acquired absence of lung [part of]; K70.30 Alcoholic cirrhosis of liver without ascites; F10.21 Alcohol dependence, in remission; K76.6 Portal hypertension; I85.00 Esophageal varices without bleeding; R16.1 Splenomegaly, not elsewhere classified; I81 Portal vein thrombosis; I27.20 Pulmonary hypertension, unspecified; D69.59 Other secondary thrombocytopenia; E87.6 Hypokalemia; G47.33 Obstructive sleep apnea (adult) (pediatric); G47.61 Periodic limb movement disorder; Z88.0 Allergy status to penicillin; Z79.899 Other long term (current) drug therapy
CPT/HCPCS: 36415; 74177; 80053; Q9967

== ENCOUNTER 2022-07-21 09:36 | Emergency (ER) | payer MEDICARE ==
[~2022-07-21] VITALS: Ht 160 cm; Wt 71.0 kg
[~2022-07-21 09:36] MED LIST changes: +LORA1TAB4 PO; +MAGN400T2 PO; +PERC5TAB12 PO; +VITMTA PO
[2022-07-21 10:59] LABS: BASO % 0.3 % (0.0-1.0); EOS # 0.1 10^3/uL (0.0-0.5); EOS % 1.1 % (0.0-3.0); HEMOGLOBIN 11.8 g/dl (12.0-15.5); LYMPH # 0.3 10^3/uL (1.5-5.0); LYMPH % 5.5 % (24.0-44.0); MEAN CORPUSCULAR HEMOGLOBIN 30.9 pg (27.0-33.0); MEAN CORPUSCULAR HGB CONC 32.8 g/dl (32.0-36.5); MEAN CORPUSCULAR VOLUME 94.2 fl (80.0-96.0); MONO # 0.4 10^3/uL (0.0-0.8); MONO % 6.1 % (2.0-8.0); NEUTROPHILS # 5.4 10^3/uL (1.5-8.5); NEUTROPHILS % 86.7 % (36.0-66.0); PLATELET COUNT, AUTOMATED 158 10^3/uL (150-450); RED BLOOD COUNT 3.82 10^6/uL (4.00-5.40); WHITE BLOOD COUNT 6.2 10^3/uL (4.0-10.0)
[2022-07-21 11:19] LABS: LIPASE 95 U/L (12-53)
[2022-07-21 11:21] LABS: CPK CREATINE PHOSPHOKINASE 39 U/L (34-145)
[2022-07-21 11:25] LABS: ALBUMIN 3.1 G/DL (3.2-5.2); ALKALINE PHOSPHATASE 175 U/L (46-116); ALT/SGPT 26 U/L (7.0-40); AST/SGOT 35 U/L (<34); BILIRUBIN,DIRECT 1.8 MG/DL (<0.4); BILIRUBIN,TOTAL 3.3 MG/DL (0.3-1.2); BLOOD UREA NITROGEN 8 MG/DL (9-23); CALCIUM LEVEL 9.1 MG/DL (8.3-10.6); CARBON DIOXIDE LEVEL 28 MMOL/L (20-31); CHLORIDE LEVEL 109 MMOL/L (98-107); CK-MB VALUE MASS 1.2 NG/ML (<3.6); CREATININE FOR GFR 0.71 MG/DL (0.55-1.30); GLOMERULAR FILTRATION RATE > 60.0 (>45); GLUCOSE, FASTING 137 MG/DL (74-106); MB/CK RELATIVE INDEX 3.07 (< OR =4); POTASSIUM SERUM 3.3 MMOL/L (3.5-5.1); SODIUM LEVEL 145 MMOL/L (136-145)
[2022-07-21 11:26] LABS: INR 1.21; PROTHROMBIN TIME 15.6 SECONDS (12.5-14.5)
[2022-07-21 11:27] LABS: PARTIAL THROMBOPLASTIN TIME 36.5 SECONDS (24.8-34.2)
[2022-07-21] MEDS ORDERED: ONDANSETRON 4MG 2ML VIAL IV ONE (12:05)
[2022-07-21] MEDS ORDERED: NS 1,000 ML IV ONE (13:30)
[2022-07-21] MEDS ORDERED: PROMETHAZINE 25MG/ML 1ML VIAL IV ONE (13:30)
[2022-07-21] MEDS ORDERED: GI COCKTAIL 50ML BTL(HYOSCYAMINE/MAALOX/LIDOCAINE VISCOUS)(1:3:1) PO ONE (14:20)
[2022-07-21] MEDS ORDERED: POTASSIUM CHLORIDE 10MEQ SR TABLET PO ONE (16:10)
[2022-07-21] MEDS ORDERED: ONDA4TAB6 PO (16:25)
[2022-07-21] MEDS ORDERED: PROM25TA12 PO (16:25)
[2022-07-21] MEDS ORDERED: MAG SULF 1GM/100ML (MAG RUN) 1 GM in IV 1 EA IV ONE (16:45)
[2022-07-21 17:58] VITALS: BP 132/68
== END 2022-07-21 18:00 | disposition home or self-care (01) ==
LOC: M ED 09:36
DX: N13.30 Unspecified hydronephrosis (principal); R11.10 Vomiting, unspecified; G47.33 Obstructive sleep apnea (adult) (pediatric); Z85.038 Personal history of other malignant neoplasm of large intestine; Z79.899 Other long term (current) drug therapy; Z88.0 Allergy status to penicillin; R16.0 Hepatomegaly, not elsewhere classified; R93.2 Abnormal findings on diagnostic imaging of liver and biliary tract; R18.8 Other ascites; R91.8 Other nonspecific abnormal finding of lung field
CPT/HCPCS: 71045; 74176; 76705; 80048; 80076; 82550; 82553; 83605; 83690; 83735; 84484; 85025; 85610; 85730; 86850; 86870; 86900; 86901; 87040; 87077; 87186; 93005; 93041; 96361; 96365; 96375; 99284; J2405; J2550; J3475

== ENCOUNTER → 2022-09-30 | Outpatient (CLI) | payer MEDICARE ==
[~2022-09-30] MED LIST changes: +FAMO20TA PO; +LONS0.27 PO; +ONDA-84; +ONDA4TAB6 PO; +PROM25TA12 PO
[2022-09-30 16:17] LABS: BASO % 0.4 % (0.0-1.0); EOS # 0.1 10^3/uL (0.0-0.5); HEMATOCRIT 35.4 % (36.0-47.0); HEMOGLOBIN 11.4 g/dl (12.0-15.5); LYMPH # 0.9 10^3/uL (1.5-5.0); LYMPH % 17.1 % (24.0-44.0); MEAN CORPUSCULAR HEMOGLOBIN 29.4 pg (27.0-33.0); MEAN CORPUSCULAR HGB CONC 32.2 g/dl (32.0-36.5); MEAN CORPUSCULAR VOLUME 91.2 fl (80.0-96.0); MONO # 0.4 10^3/uL (0.0-0.8); NEUTROPHILS % 72.1 % (36.0-66.0); PLATELET COUNT, AUTOMATED 103 10^3/uL (150-450); RED BLOOD COUNT 3.88 10^6/uL (4.00-5.40); WHITE BLOOD COUNT 5.5 10^3/uL (4.0-10.0)
[2022-09-30 16:43] LABS: ALBUMIN 3.6 G/DL (3.2-5.2); ALKALINE PHOSPHATASE 154 U/L (46-116); ALT/SGPT 30 U/L (7.0-40); AST/SGOT 27 U/L (<34); BILIRUBIN,TOTAL 2.3 MG/DL (0.3-1.2); BLOOD UREA NITROGEN 16 MG/DL (9-23); CALCIUM LEVEL 8.9 MG/DL (8.3-10.6); CARBON DIOXIDE LEVEL 25 MMOL/L (20-31); CHLORIDE LEVEL 109 MMOL/L (98-107); CREATININE FOR GFR 0.66 MG/DL (0.55-1.30); GLOMERULAR FILTRATION RATE > 60.0 (>45); GLUCOSE, FASTING 87 MG/DL (74-106); POTASSIUM SERUM 4.1 MMOL/L (3.5-5.1); SODIUM LEVEL 140 MMOL/L (136-145); TOTAL PROTEIN 6.3 G/DL (5.7-8.2)
== END ==
LOC: M RAD 15:19
PROVIDERS: ATTEND Nurse Practitioner Adult Health
DX: Z01.818 Encounter for other preprocedural examination (principal); R91.8 Other nonspecific abnormal finding of lung field; Z79.899 Other long term (current) drug therapy

== ENCOUNTER 2022-10-04 08:59 | Day surgery (SDC) | payer MEDICARE ==
[~2022-10-04] VITALS: Ht 160 cm; Wt 71.8 kg
[~2022-10-04 08:59] MED LIST changes: +LORA1TAB23 PO; -LORA1TAB4 PO; +ceFAZolin SOD 2 GM in IV 1 EA IV ONE
[2022-10-04] MEDS ORDERED: MIDAZOLAM INJ 2MG/2ML VIAL As Ordered ONE (09:20)
[2022-10-04] MEDS ORDERED: propofoL 200 MG/20 ML VIAL As Ordered ONE (09:20)
[2022-10-04] MEDS ORDERED: fentaNYL 100 MCG/2 ML INJECTION As Ordered ONE (09:20)
[2022-10-04] MEDS ORDERED: LIDOCAINE 2% 100MG/5ML SDV (FOR ANES.) As Ordered ONE (09:20)
[2022-10-04] MEDS ORDERED: ONDANSETRON 4MG 2ML VIAL As Ordered ONE (09:21)
[2022-10-04] MEDS ORDERED: LR 1,000 ML IV SCH (09:40)
[2022-10-04] MEDS ORDERED: fentaNYL 100 MCG/2 ML INJECTION IV PRN (11:50)
[2022-10-04] MEDS ORDERED: MORPHINE 2 MG/ML 1ML VIAL IV PRN (11:50)
[2022-10-04] MEDS ORDERED: ONDANSETRON 4MG 2ML VIAL IV PRN (11:50)
[2022-10-04] MEDS ORDERED: oxyCODONE 5MG TAB PO PRN (11:50)
[2022-10-04 13:15] VITALS: BP 110/67
== END 2022-10-04 13:20 | disposition home or self-care (01) ==
LOC: M SDC 08:59
PROVIDERS: ATTEND Urology
DX: N13.39 Other hydronephrosis (principal); C26.0 Malignant neoplasm of intestinal tract, part unspecified; I10 Essential (primary) hypertension; R01.1 Cardiac murmur, unspecified; Z92.21 Personal history of antineoplastic chemotherapy; C78.7 Secondary malignant neoplasm of liver and intrahepatic bile duct; Z92.3 Personal history of irradiation; F41.9 Anxiety disorder, unspecified; F32.A Depression, unspecified; I27.20 Pulmonary hypertension, unspecified; C78.00 Secondary malignant neoplasm of unspecified lung; Z88.0 Allergy status to penicillin; Z79.899 Other long term (current) drug therapy; Z79.891 Long term (current) use of opiate analgesic
CPT/HCPCS: 52351; 74420; C1769; J0690; J1100; J2250; J2405; J3010

== ENCOUNTER → 2022-11-16 | Outpatient (CLI) | payer MEDICARE ==
[~2022-11-16] MED LIST changes: -K-TA10TA PO; +POTA-164 PO; -ceFAZolin SOD 2 GM in IV 1 EA IV ONE
[2022-11-16 13:14] LABS: APPEARANCE, URINE CLEAR (CLEAR); BACTERIA, URINE AUTO 1+ (NEGATIVE); BILIRUBIN, URINE AUTO NEGATIVE (NEGATIVE); BLOOD, URINE BLOOD NEGATIVE (NEGATIVE); COLOR, URINE YELLOW (YELLOW); GLUCOSE, URINE (UA) AUTO NEGATIVE (NEGATIVE); KETONE, URINE AUTO NEGATIVE (NEGATIVE); LEUKOCYTE ESTERASE, URINE AUTO NEGATIVE (NEGATIVE); MUCUS, URINE SMALL (NEGATIVE); NITRITE, URINE AUTO NEGATIVE (NEGATIVE); PROTEIN, URINE AUTO NEGATIVE (NEGATIVE); RBC, URINE AUTO 0 /HPF (0-3); SPECIFIC GRAVITY URINE AUTO 1.012 (1.002-1.035); SQUAMOUS EPITHELIAL CELL UR AU 0 /HPF (0-6); UROBILINOGEN, URINE AUTO 0.2 mg/dL (0.0-2.0); WBC, URINE AUTO 1 /HPF (0-3)
[2022-11-16 13:21] LABS: BASO % 0.3 % (0.0-1.0); EOS % 0.5 % (0.0-3.0); HEMATOCRIT 32.7 % (36.0-47.0); HEMOGLOBIN 10.4 g/dl (12.0-15.5); LYMPH # 0.6 10^3/uL (1.5-5.0); LYMPH % 9.5 % (24.0-44.0); MEAN CORPUSCULAR HEMOGLOBIN 30.7 pg (27.0-33.0); MEAN CORPUSCULAR HGB CONC 31.8 g/dl (32.0-36.5); MEAN CORPUSCULAR VOLUME 96.5 fl (80.0-96.0); MONO # 0.3 10^3/uL (0.0-0.8); MONO % 5.9 % (2.0-8.0); NEUTROPHILS # 4.8 10^3/uL (1.5-8.5); NEUTROPHILS % 83.1 % (36.0-66.0); RED BLOOD COUNT 3.39 10^6/uL (4.00-5.40); WHITE BLOOD COUNT 5.8 10^3/uL (4.0-10.0)
[2022-11-16 13:33] LABS: ALBUMIN 3.7 G/DL (3.2-5.2); ALKALINE PHOSPHATASE 138 U/L (46-116); ALT/SGPT 21 U/L (7.0-40); AST/SGOT 24 U/L (<34); BILIRUBIN,TOTAL 2.3 MG/DL (0.3-1.2); BLOOD UREA NITROGEN 9 MG/DL (9-23); CALCIUM LEVEL 8.7 MG/DL (8.3-10.6); CARBON DIOXIDE LEVEL 25 MMOL/L (20-31); CHLORIDE LEVEL 112 MMOL/L (98-107); CREATININE FOR GFR 0.66 MG/DL (0.55-1.30); GLOMERULAR FILTRATION RATE > 60.0 (>45); GLUCOSE, FASTING 101 MG/DL (74-106); POTASSIUM SERUM 4.4 MMOL/L (3.5-5.1); SODIUM LEVEL 143 MMOL/L (136-145); TOTAL PROTEIN 6.1 G/DL (5.7-8.2)
[2022-11-16 13:37] LABS: PLATELET COUNT, AUTOMATED 80 10^3/uL (150-450)
== END ==
LOC: M LAB 12:27
PROVIDERS: ATTEND Internal Medicine Medical Oncology
DX: C18.9 Malignant neoplasm of colon, unspecified (principal)

== ENCOUNTER → 2022-11-19 | Outpatient (CLI) | payer MEDICARE | LOC: M RAD 08:19 | PROVIDERS: ATTEND Internal Medicine Medical Oncology | DX: C18.9 Malignant neoplasm of colon, unspecified (principal); R74.01 Elevation of levels of liver transaminase levels ==

== ENCOUNTER → 2022-11-30 | Outpatient (CLI) | payer MEDICARE ==
[~2022-11-30] MED LIST changes: +AMOX875T2 PO
[2022-11-30 13:24] LABS: BASO % 0.5 % (0.0-1.0); EOS # 0.2 10^3/uL (0.0-0.5); EOS % 3.6 % (0.0-3.0); HEMATOCRIT 37.1 % (36.0-47.0); LYMPH # 0.8 10^3/uL (1.5-5.0); LYMPH % 13.6 % (24.0-44.0); MEAN CORPUSCULAR HEMOGLOBIN 30.8 pg (27.0-33.0); MEAN CORPUSCULAR HGB CONC 32.3 g/dl (32.0-36.5); MEAN CORPUSCULAR VOLUME 95.4 fl (80.0-96.0); MONO # 0.4 10^3/uL (0.0-0.8); MONO % 6.6 % (2.0-8.0); NEUTROPHILS # 4.4 10^3/uL (1.5-8.5); NEUTROPHILS % 75.4 % (36.0-66.0); RED BLOOD COUNT 3.89 10^6/uL (4.00-5.40); WHITE BLOOD COUNT 5.8 10^3/uL (4.0-10.0)
[2022-11-30 13:50] LABS: ALBUMIN 3.9 G/DL (3.2-5.2); ALKALINE PHOSPHATASE 120 U/L (46-116); ALT/SGPT 26 U/L (7.0-40); AST/SGOT 37 U/L (<34); BILIRUBIN,TOTAL 1.7 MG/DL (0.3-1.2); BLOOD UREA NITROGEN 17 MG/DL (9-23); CALCIUM LEVEL 8.9 MG/DL (8.3-10.6); CARBON DIOXIDE LEVEL 26 MMOL/L (20-31); CHLORIDE LEVEL 110 MMOL/L (98-107); CREATININE FOR GFR 0.69 MG/DL (0.55-1.30); GLOMERULAR FILTRATION RATE > 60.0 (>45); GLUCOSE, FASTING 96 MG/DL (74-106); MAGNESIUM LEVEL 1.6 MG/DL (1.8-2.4); POTASSIUM SERUM 4.4 MMOL/L (3.5-5.1); SODIUM LEVEL 141 MMOL/L (136-145); TOTAL PROTEIN 6.4 G/DL (5.7-8.2)
[2022-11-30 14:24] LABS: PLATELET COUNT, AUTOMATED 92 10^3/uL (150-450)
== END ==
LOC: M LAB 12:51
PROVIDERS: ATTEND Internal Medicine Medical Oncology
DX: C18.9 Malignant neoplasm of colon, unspecified (principal)

== ENCOUNTER → 2022-12-14 | Outpatient (CLI) | payer MEDICAID, MEDICARE ==
[2022-12-14 17:34] LABS: BASO % 0.4 % (0.0-1.0); EOS # 0.1 10^3/uL (0.0-0.5); EOS % 2.3 % (0.0-3.0); HEMATOCRIT 34.5 % (36.0-47.0); HEMOGLOBIN 11.3 g/dl (12.0-15.5); LYMPH # 0.7 10^3/uL (1.5-5.0); LYMPH % 15.6 % (24.0-44.0); MEAN CORPUSCULAR HEMOGLOBIN 31.3 pg (27.0-33.0); MEAN CORPUSCULAR HGB CONC 32.8 g/dl (32.0-36.5); MEAN CORPUSCULAR VOLUME 95.6 fl (80.0-96.0); MONO # 0.2 10^3/uL (0.0-0.8); MONO % 4.4 % (2.0-8.0); NEUTROPHILS # 3.6 10^3/uL (1.5-8.5); NEUTROPHILS % 76.7 % (36.0-66.0); RED BLOOD COUNT 3.61 10^6/uL (4.00-5.40); WHITE BLOOD COUNT 4.7 10^3/uL (4.0-10.0)
[2022-12-14 17:39] LABS: PLATELET COUNT, AUTOMATED 73 10^3/uL (150-450)
[2022-12-14 17:42] LABS: ALBUMIN 3.7 G/DL (3.2-5.2); ALKALINE PHOSPHATASE 109 U/L (46-116); ALT/SGPT 23 U/L (7.0-40); AST/SGOT 26 U/L (<34); BILIRUBIN,TOTAL 3.1 MG/DL (0.3-1.2); BLOOD UREA NITROGEN 15 MG/DL (9-23); CALCIUM LEVEL 9.6 MG/DL (8.3-10.6); CARBON DIOXIDE LEVEL 25 MMOL/L (20-31); CHLORIDE LEVEL 109 MMOL/L (98-107); CREATININE FOR GFR 0.63 MG/DL (0.55-1.30); GLOMERULAR FILTRATION RATE > 60.0 (>45); GLUCOSE, FASTING 90 MG/DL (74-106); MAGNESIUM LEVEL 1.6 MG/DL (1.8-2.4); SODIUM LEVEL 139 MMOL/L (136-145); TOTAL PROTEIN 6.3 G/DL (5.7-8.2)
== END ==
LOC: M LAB 16:08
PROVIDERS: ATTEND Internal Medicine Medical Oncology
DX: C18.7 Malignant neoplasm of sigmoid colon (principal)

== ENCOUNTER → 2022-12-29 | Outpatient (CLI) | payer MEDICAID, MEDICARE ==
[2022-12-29 11:33] LABS: HEMATOCRIT 35.7 % (36.0-47.0); HEMOGLOBIN 11.5 g/dl (12.0-15.5); MEAN CORPUSCULAR HEMOGLOBIN 31.6 pg (27.0-33.0); MEAN CORPUSCULAR HGB CONC 32.2 g/dl (32.0-36.5); MEAN CORPUSCULAR VOLUME 98.1 fl (80.0-96.0); PLATELET COUNT, AUTOMATED 100 10^3/uL (150-450); RED BLOOD COUNT 3.64 10^6/uL (4.00-5.40)
[2022-12-29 12:05] LABS: ALBUMIN 3.7 G/DL (3.2-5.2); ALKALINE PHOSPHATASE 140 U/L (46-116); ALT/SGPT 38 U/L (7.0-40); AST/SGOT 43 U/L (<34); BILIRUBIN,TOTAL 2.2 MG/DL (0.3-1.2); BLOOD UREA NITROGEN 19 MG/DL (9-23); CALCIUM LEVEL 9.6 MG/DL (8.3-10.6); CARBON DIOXIDE LEVEL 24 MMOL/L (20-31); CHLORIDE LEVEL 110 MMOL/L (98-107); CREATININE FOR GFR 0.62 MG/DL (0.55-1.30); GLOMERULAR FILTRATION RATE > 60.0 (>45); GLUCOSE, FASTING 123 MG/DL (74-106); POTASSIUM SERUM 4.3 MMOL/L (3.5-5.1); SODIUM LEVEL 142 MMOL/L (136-145); TOTAL PROTEIN 6.4 G/DL (5.7-8.2)
== END ==
LOC: M LAB 10:44
PROVIDERS: ATTEND Urology
DX: N13.30 Unspecified hydronephrosis (principal)

== ENCOUNTER 2023-01-03 13:29 | Emergency (ER) | payer MEDICAID, MEDICARE ==
[~2023-01-03] VITALS: Ht 162.6 cm; Wt 70.5 kg
[2023-01-03 13:30] VITALS: BP 176/95; TEMP 97.9; O2SAT 97
[2023-01-03] MEDS ORDERED: BOOSTRIX VACCINE (TETANUS/DIPHTH/ACEL. PERTUSSIS) 0.5ML SYR IM.IMMUN ONE (17:20)
[2023-01-03] MEDS ORDERED: CIPR-249 PO (17:24)
== END 2023-01-03 17:42 | disposition home or self-care (01) ==
LOC: M ED 13:29
DX: S91.332A Puncture wound without foreign body, left foot, initial encounter (principal); W45.0XXA Nail entering through skin, initial encounter; Y92.017 Garden or yard in single-family (private) house as the place of occurrence of the external cause; L03.112 Cellulitis of left axilla; I10 Essential (primary) hypertension; Z88.0 Allergy status to penicillin; Z79.899 Other long term (current) drug therapy

== ENCOUNTER → 2023-01-07 | Outpatient (CLI) | payer MEDICAID, MEDICARE ==
[~2023-01-07] MED LIST changes: +CIPR-249 PO; +GASTROGRAFIN SOLUTION 30ML As Ordered ONE; +ISOVUE-370 76% 100ML VIAL As Ordered ONE
== END ==
LOC: M RAD 11:30
PROVIDERS: ATTEND Internal Medicine Medical Oncology
DX: C18.9 Malignant neoplasm of colon, unspecified (principal); C78.00 Secondary malignant neoplasm of unspecified lung
CPT/HCPCS: 71260; 74177; Q9963; Q9967

== ENCOUNTER 2023-03-10 08:58 | Observation (INO) | payer MEDICARE ==
[2023-03-10] VITALS (12 sets, daily range): BP systolic 109–138; BP diastolic 62–88; TEMP 97–98.2; O2SAT 90–98
[~2023-03-10] VITALS: Ht 160 cm; Wt 71.4 kg
[~2023-03-10 08:58] MED LIST changes: +ACETAMINOPHEN TAB 650MG DOSE (2X325MG) PO SCH; -GASTROGRAFIN SOLUTION 30ML As Ordered ONE; -ISOVUE-370 76% 100ML VIAL As Ordered ONE; +MAGN200T PO; +UNRESOLVED CLARIFICATION ENTRY XX SCH; +ceFAZolin SOD 2 GM in IV 1 EA IV ONE; +diphenhydrAMINE 25MG CAP PO SCH; +metroNIDAZOLE 500 MG in IV 1 EA IV ONE
[2023-03-10] MEDS ORDERED: LR 1,000 ML IV SCH ×2 (09:30→13:40)
[2023-03-10 10:08] LABS: HEMATOCRIT 36.6 % (36.0-47.0); HEMOGLOBIN 12.2 g/dl (12.0-15.5); MEAN CORPUSCULAR HEMOGLOBIN 30.9 pg (27.0-33.0); MEAN CORPUSCULAR HGB CONC 33.3 g/dl (32.0-36.5); MEAN CORPUSCULAR VOLUME 92.7 fl (80.0-96.0); RED BLOOD COUNT 3.95 10^6/uL (4.00-5.40); WHITE BLOOD COUNT 5.4 10^3/uL (4.0-10.0)
[2023-03-10 10:17] LABS: PLATELET COUNT, AUTOMATED 59 10^3/uL (150-450)
[2023-03-10] MEDS ORDERED: fentaNYL 100 MCG/2 ML INJECTION As Ordered ONE (12:09)
[2023-03-10] MEDS ORDERED: MIDAZOLAM INJ 2MG/2ML VIAL As Ordered ONE (12:09)
[2023-03-10] MEDS ORDERED: ONDANSETRON 4MG 2ML VIAL As Ordered ONE (12:10)
[2023-03-10] MEDS ORDERED: LIDOCAINE 2% 100MG/5ML SDV (FOR ANES.) As Ordered ONE (12:10)
[2023-03-10] MEDS ORDERED: propofoL 200 MG/20 ML VIAL As Ordered ONE (12:10)
[2023-03-10 12:47] LABS: MEAN CORPUSCULAR HEMOGLOBIN 31.1 pg (27.0-33.0); MEAN CORPUSCULAR HGB CONC 33.3 g/dl (32.0-36.5); MEAN CORPUSCULAR VOLUME 93.2 fl (80.0-96.0); RED BLOOD COUNT 3.54 10^6/uL (4.00-5.40); WHITE BLOOD COUNT 4.1 10^3/uL (4.0-10.0)
[2023-03-10 12:48] LABS: PLATELET COUNT, AUTOMATED 51 10^3/uL (150-450)
[2023-03-10] MEDS ORDERED: THROMBIN 5,000 UNITS VIAL As Ordered ONE (13:00)
[2023-03-10] MEDS ORDERED: LIDOCAINE 2% W/ EPINEPHRINE 1.7 ML DENTAL INJ As Ordered ONE (13:37)
[2023-03-10] MEDS ORDERED: ONDANSETRON 4MG 2ML VIAL IV PRN (13:40)
[2023-03-10] MEDS ORDERED: fentaNYL 100 MCG/2 ML INJECTION IV PRN (13:40)
[2023-03-10] MEDS ORDERED: oxyCODONE 5MG TAB PO PRN (13:40)
[2023-03-10] MEDS ORDERED: HYDROMORPHONE HCL 0.5 MG/ 0.5 ML SYRINGE IV PRN (13:40)
[2023-03-10 14:05] LABS: HEMATOCRIT 31.3 % (36.0-47.0); HEMOGLOBIN 10.5 g/dl (12.0-15.5); MEAN CORPUSCULAR HEMOGLOBIN 31.5 pg (27.0-33.0); MEAN CORPUSCULAR HGB CONC 33.5 g/dl (32.0-36.5); RED BLOOD COUNT 3.33 10^6/uL (4.00-5.40); WHITE BLOOD COUNT 3.4 10^3/uL (4.0-10.0)
[2023-03-10 14:07] LABS: PLATELET COUNT, AUTOMATED 41 10^3/uL (150-450)
[2023-03-10] MEDS ORDERED: LORazepam 1 MG TAB PO PRN (16:30)
[2023-03-10 19:00] LABS: BLOOD UREA NITROGEN 14 MG/DL (9-23); CALCIUM LEVEL 8.6 MG/DL (8.3-10.6); CARBON DIOXIDE LEVEL 26 MMOL/L (20-31); CHLORIDE LEVEL 109 MMOL/L (98-107); CREATININE FOR GFR 0.68 MG/DL (0.55-1.30); GLOMERULAR FILTRATION RATE > 60.0 (>45); GLUCOSE, FASTING 209 MG/DL (74-106); POTASSIUM SERUM 3.7 MMOL/L (3.5-5.1); SODIUM LEVEL 143 MMOL/L (136-145)
[2023-03-10] MEDS: ceFAZolin SOD 2 GM in IV 1 EA IV SCH (19:47)
[2023-03-11 02:00] VITALS: BP 116/66; TEMP 98.2; O2SAT 93
[2023-03-11] MEDS: ceFAZolin SOD 2 GM in IV 1 EA IV SCH (03:13)
[2023-03-11 06:00] VITALS: BP 111/65; TEMP 97.7; O2SAT 93
[2023-03-11 08:32] LABS: BASO % 0.2 % (0.0-1.0); HEMATOCRIT 37.2 % (36.0-47.0); LYMPH # 0.8 10^3/uL (1.5-5.0); LYMPH % 7.9 % (24.0-44.0); MEAN CORPUSCULAR HEMOGLOBIN 31.8 pg (27.0-33.0); MEAN CORPUSCULAR HGB CONC 34.1 g/dl (32.0-36.5); MONO # 0.4 10^3/uL (0.0-0.8); MONO % 4.2 % (2.0-8.0); NEUTROPHILS # 9.2 10^3/uL (1.5-8.5); NEUTROPHILS % 87.3 % (36.0-66.0); WHITE BLOOD COUNT 10.5 10^3/uL (4.0-10.0)
[2023-03-11 08:39] LABS: HEMOGLOBIN 12.7 g/dl (12.0-15.5)
[2023-03-11 08:40] LABS: PLATELET COUNT, AUTOMATED 65 10^3/uL (150-450)
[2023-03-11] MEDS ORDERED: SENNA 8.6 MG TAB (SENOKOT) PO SCH (09:00)
[2023-03-11] MEDS ORDERED: guaiFENesin ER TABLET 600 MG TAB PO SCH (09:00)
[2023-03-11] MEDS ORDERED: CEPH500C PO (09:52)
[2023-03-11] MEDS ORDERED: PROBCAP14 PO (09:52)
[2023-03-11] MEDS ORDERED: PERI0.126 SSP (09:52)
== END 2023-03-11 10:29 | disposition home or self-care (01) ==
LOC: M SDC 08:58 → M ED INP 14:48 → M MSPAV 16:14
PROVIDERS: ADMIT Dentist; ATTEND Internal Medicine Nephrology
DX: K04.7 Periapical abscess without sinus (principal); C18.6 Malignant neoplasm of descending colon; D69.59 Other secondary thrombocytopenia; C78.01 Secondary malignant neoplasm of right lung; C78.7 Secondary malignant neoplasm of liver and intrahepatic bile duct; I27.20 Pulmonary hypertension, unspecified; K70.30 Alcoholic cirrhosis of liver without ascites; F10.21 Alcohol dependence, in remission; I81 Portal vein thrombosis; I85.00 Esophageal varices without bleeding; K76.6 Portal hypertension; D69.1 Qualitative platelet defects; R16.1 Splenomegaly, not elsewhere classified; G47.33 Obstructive sleep apnea (adult) (pediatric); Z90.49 Acquired absence of other specified parts of digestive tract; Z80.0 Family history of malignant neoplasm of digestive organs; Z88.0 Allergy status to penicillin; Z79.899 Other long term (current) drug therapy; Z79.2 Long term (current) use of antibiotics; Z87.891 Personal history of nicotine dependence
CPT/HCPCS: 36415; 41899; 80048; 85025; 85027; 85049; 85055; 88300; 96374; 96376; G0378; J0690; J1100; J2250; J2405; J3010; P9034

== ENCOUNTER → 2023-04-11 | Outpatient (CLI) | payer MEDICARE ==
[~2023-04-11] MED LIST changes: -ACETAMINOPHEN TAB 650MG DOSE (2X325MG) PO SCH; -EMEN150S IV; +FAMO1TAB11; +FOSA150V36 IV; +PERI0.126 SSP; +PROBCAP14 PO; -UNRESOLVED CLARIFICATION ENTRY XX SCH; -ceFAZolin SOD 2 GM in IV 1 EA IV ONE; -diphenhydrAMINE 25MG CAP PO SCH; -metroNIDAZOLE 500 MG in IV 1 EA IV ONE
== END ==
LOC: M CARPUL 13:34
PROVIDERS: ATTEND Internal Medicine Medical Oncology
DX: I10 Essential (primary) hypertension (principal); I08.3 Combined rheumatic disorders of mitral, aortic and tricuspid valves

== ENCOUNTER → 2023-06-15 | Outpatient (CLI) | payer MEDICARE ==
[~2023-06-15] MED LIST changes: +GASTROGRAFIN SOLUTION 30ML As Ordered ONE; +ISOVUE-370 76% 100ML VIAL As Ordered ONE
== END ==
LOC: M RAD 12:53
PROVIDERS: ATTEND Internal Medicine Hematology & Oncology
DX: C18.9 Malignant neoplasm of colon, unspecified (principal); R16.1 Splenomegaly, not elsewhere classified; K80.20 Calculus of gallbladder without cholecystitis without obstruction; K57.30 Diverticulosis of large intestine without perforation or abscess without bleeding; K76.6 Portal hypertension; K74.60 Unspecified cirrhosis of liver; R59.0 Localized enlarged lymph nodes; C78.01 Secondary malignant neoplasm of right lung; C78.02 Secondary malignant neoplasm of left lung; I27.21 Secondary pulmonary arterial hypertension
CPT/HCPCS: 71260; 74177; Q9963; Q9967

== ENCOUNTER → 2023-09-05 | Outpatient (CLI) | payer MEDICARE, MEDICAID ==
[~2023-09-05] MED LIST changes: -ISOVUE-370 76% 100ML VIAL As Ordered ONE; +OMEP40CA4 PO; +THERTAB52 PO; +TRAM25TA2 PO
== END ==
LOC: M RAD 15:44
PROVIDERS: ATTEND Internal Medicine Medical Oncology
DX: C18.9 Malignant neoplasm of colon, unspecified (principal); R10.9 Unspecified abdominal pain; K74.60 Unspecified cirrhosis of liver
CPT/HCPCS: 71260; 74177; Q9963

== ENCOUNTER 2023-10-07 14:09 | Emergency (ER) | payer MEDICARE, MEDICAID ==
[~2023-10-07] VITALS: Ht 157.5 cm; Wt 72.8 kg
[~2023-10-07 14:09] MED LIST changes: -GASTROGRAFIN SOLUTION 30ML As Ordered ONE
[2023-10-07 15:04] LABS: BASO % 0.5 % (0.0-1.0); EOS % 0.7 % (0.0-3.0); HEMATOCRIT 34.5 % (36.0-47.0); HEMOGLOBIN 11.3 g/dl (12.0-15.5); LYMPH # 0.3 10^3/uL (1.5-5.0); LYMPH % 8.3 % (24.0-44.0); MEAN CORPUSCULAR HEMOGLOBIN 30.9 pg (27.0-33.0); MEAN CORPUSCULAR HGB CONC 32.8 g/dl (32.0-36.5); MEAN CORPUSCULAR VOLUME 94.3 fl (80.0-96.0); MONO # 0.6 10^3/uL (0.0-0.8); MONO % 13.7 % (2.0-8.0); NEUTROPHILS # 3.1 10^3/uL (1.5-8.5); NEUTROPHILS % 76.3 % (36.0-66.0); RED BLOOD COUNT 3.66 10^6/uL (4.00-5.40); WHITE BLOOD COUNT 4.1 10^3/uL (4.0-10.0)
[2023-10-07 15:09] LABS: PLATELET COUNT, AUTOMATED 71 10^3/uL (150-450)
[2023-10-07 15:17] LABS: CK-MB VALUE MASS < 1.0 NG/ML (<3.6); LIPASE 49 U/L (12-53)
[2023-10-07 15:19] LABS: ALBUMIN 2.4 G/DL (3.2-5.2); ALKALINE PHOSPHATASE 355 U/L (46-116); ALT/SGPT 55 U/L (7.0-40); AST/SGOT 82 U/L (<34); BILIRUBIN,DIRECT 1.9 MG/DL (<0.4); BILIRUBIN,TOTAL 3.1 MG/DL (0.3-1.2); BLOOD UREA NITROGEN 13 MG/DL (9-23); CALCIUM LEVEL 8.3 MG/DL (8.3-10.6); CARBON DIOXIDE LEVEL 22 MMOL/L (20-31); CHLORIDE LEVEL 109 MMOL/L (98-107); CREATININE FOR GFR 0.65 MG/DL (0.55-1.30); GLOMERULAR FILTRATION RATE > 60.0 (>45); GLUCOSE, FASTING 144 MG/DL (74-106); POTASSIUM SERUM 3.8 MMOL/L (3.5-5.1); SODIUM LEVEL 141 MMOL/L (136-145); TOTAL PROTEIN 5.7 G/DL (5.7-8.2)
[2023-10-07 15:20] LABS: CPK CREATINE PHOSPHOKINASE 39 U/L (34-145); MB/CK RELATIVE INDEX 2.56 (< OR =4)
[2023-10-07] MEDS: IBUPROFEN 600MG TAB PO ONE (15:30)
[2023-10-07 16:08] LABS: CK-MB VALUE MASS < 1.0 NG/ML (<3.6)
[2023-10-07 16:09] LABS: CPK CREATINE PHOSPHOKINASE 34 U/L (34-145); MB/CK RELATIVE INDEX 2.94 (< OR =4)
[2023-10-07] MEDS ORDERED: ISOVUE-370 76% 100ML VIAL As Ordered ONE (17:09)
[2023-10-07] MEDS: NS 500 ML IV ONE (18:02)
[2023-10-07 21:14] VITALS: BP 102/58; TEMP 98.4; O2SAT 96
== END 2023-10-07 21:17 | disposition left against medical advice (07) ==
LOC: M ED 14:09
DX: E80.6 Other disorders of bilirubin metabolism (principal); C18.9 Malignant neoplasm of colon, unspecified; Z87.891 Personal history of nicotine dependence; Z88.0 Allergy status to penicillin; Z79.1 Long term (current) use of non-steroidal anti-inflammatories (NSAID); Z79.810 Long term (current) use of selective estrogen receptor modulators (SERMs); Z79.899 Other long term (current) drug therapy; Z53.9 Procedure and treatment not carried out, unspecified reason
CPT/HCPCS: 71045; 74177; 80048; 80076; 82140; 82550; 82553; 83690; 83880; 84484; 85025; 85049; 85055; 93005; 93041; 94760; 96360; 96361; 99285; Q9967

== ENCOUNTER 2023-10-26 11:26 | Emergency (ER) | payer MEDICARE, MEDICAID ==
[~2023-10-26] VITALS: Ht 160 cm; Wt 71.9 kg
[2023-10-26 12:30] LABS: BASO % 0.6 % (0.0-1.0); EOS # 0.1 10^3/uL (0.0-0.5); EOS % 1.5 % (0.0-3.0); HEMOGLOBIN 11.6 g/dl (12.0-15.5); LYMPH # 0.7 10^3/uL (1.5-5.0); LYMPH % 14.6 % (24.0-44.0); MEAN CORPUSCULAR HEMOGLOBIN 31.1 pg (27.0-33.0); MEAN CORPUSCULAR HGB CONC 33.1 g/dl (32.0-36.5); MEAN CORPUSCULAR VOLUME 93.8 fl (80.0-96.0); MONO # 0.5 10^3/uL (0.0-0.8); MONO % 9.9 % (2.0-8.0); NEUTROPHILS # 3.4 10^3/uL (1.5-8.5); RED BLOOD COUNT 3.73 10^6/uL (4.00-5.40); WHITE BLOOD COUNT 4.7 10^3/uL (4.0-10.0)
[2023-10-26 12:34] LABS: PLATELET COUNT, AUTOMATED 79 10^3/uL (150-450)
[2023-10-26 12:43] LABS: INR 1.17; PROTHROMBIN TIME 14.6 SECONDS (12.5-14.5)
[2023-10-26] MEDS ORDERED: ISOVUE-370 76% 100ML VIAL As Ordered ONE (12:51)
[2023-10-26 12:54] LABS: ALKALINE PHOSPHATASE 307 U/L (46-116); ALT/SGPT 44 U/L (7.0-40); AST/SGOT 63 U/L (<34); BILIRUBIN,DIRECT 1.1 MG/DL (<0.4); BLOOD UREA NITROGEN 14 MG/DL (9-23); CALCIUM LEVEL 8.9 MG/DL (8.3-10.6); CARBON DIOXIDE LEVEL 23 MMOL/L (20-31); CHLORIDE LEVEL 112 MMOL/L (98-107); CREATININE FOR GFR 0.64 MG/DL (0.55-1.30); GLOMERULAR FILTRATION RATE > 60.0 (>45); GLUCOSE, FASTING 105 MG/DL (74-106); SODIUM LEVEL 142 MMOL/L (136-145); TOTAL PROTEIN 6.3 G/DL (5.7-8.2)
[2023-10-26] MEDS ORDERED: MULTTAB61 PO (13:42)
[2023-10-26] MEDS ORDERED: HOME MED LIST COMPLETE! XX SCH (13:45)
[2023-10-26 16:27] VITALS: BP 127/80; TEMP 97.3; O2SAT 94
== END 2023-10-26 16:29 | disposition home or self-care (01) ==
LOC: M ED 11:26
DX: C79.9 Secondary malignant neoplasm of unspecified site (principal); C18.9 Malignant neoplasm of colon, unspecified; R94.31 Abnormal electrocardiogram [ECG] [EKG]; Z88.0 Allergy status to penicillin; Z79.1 Long term (current) use of non-steroidal anti-inflammatories (NSAID); Z79.810 Long term (current) use of selective estrogen receptor modulators (SERMs); Z79.899 Other long term (current) drug therapy
CPT/HCPCS: 36415; 71045; 71275; 80048; 80076; 85025; 85610; 93005; 93041; 94760; 99285; Q9967

== ENCOUNTER → 2024-01-02 | Outpatient (CLI) | payer MEDICARE, MEDICAID ==
[~2024-01-02] MED LIST changes: +ISOVUE-370 76% 100ML VIAL As Ordered ONE; +LEVO1TAB39 PO; +MULTTAB61 PO; +ONDA-282 PO; -ONDA4TAB6 PO
== END ==
LOC: M RAD 14:46
PROVIDERS: ATTEND Internal Medicine Medical Oncology
DX: R59.0 Localized enlarged lymph nodes (principal); C18.9 Malignant neoplasm of colon, unspecified; C78.00 Secondary malignant neoplasm of unspecified lung

== ENCOUNTER → 2024-01-09 | Outpatient (CLI) | payer MEDICARE, MEDICAID ==
[~2024-01-09] MED LIST changes: +GASTROGRAFIN SOLUTION 30ML As Ordered ONE
== END ==
LOC: M RAD 13:11
PROVIDERS: ATTEND Internal Medicine Medical Oncology
DX: C18.9 Malignant neoplasm of colon, unspecified (principal); C78.01 Secondary malignant neoplasm of right lung; C78.02 Secondary malignant neoplasm of left lung; R59.0 Localized enlarged lymph nodes; R16.1 Splenomegaly, not elsewhere classified
CPT/HCPCS: 71260; 74177; Q9963; Q9967

== ENCOUNTER → 2024-01-30 | Outpatient (CLI) | payer MEDICARE, MEDICAID ==
[~2024-01-30] MED LIST changes: -GASTROGRAFIN SOLUTION 30ML As Ordered ONE; -ISOVUE-370 76% 100ML VIAL As Ordered ONE
[2024-01-30 16:48] LABS: BASO # 0.1 10^3/uL (0.0-0.2); BASO % 0.6 % (0.0-1.0); EOS # 0.2 10^3/uL (0.0-0.5); EOS % 0.6 % (0.0-3.0); HEMATOCRIT 37.5 % (36.0-47.0); HEMOGLOBIN 12.4 g/dl (12.0-15.5); LYMPH # 1.2 10^3/uL (1.5-5.0); LYMPH % 4.8 % (24.0-44.0); MEAN CORPUSCULAR HEMOGLOBIN 31.6 pg (27.0-33.0); MEAN CORPUSCULAR HGB CONC 33.1 g/dl (32.0-36.5); MEAN CORPUSCULAR VOLUME 95.4 fl (80.0-96.0); MONO # 1.2 10^3/uL (0.0-0.8); MONO % 4.6 % (2.0-8.0); NEUTROPHILS # 22.1 10^3/uL (1.5-8.5); NEUTROPHILS % 88.3 % (36.0-66.0); RED BLOOD COUNT 3.93 10^6/uL (4.00-5.40); WHITE BLOOD COUNT 25.1 10^3/uL (4.0-10.0)
[2024-01-30 16:51] LABS: PLATELET COUNT, AUTOMATED 35 10^3/uL (150-450)
[2024-01-30 16:59] LABS: ALBUMIN 3.4 G/DL (3.2-5.2); ALKALINE PHOSPHATASE 368 U/L (46-116); ALT/SGPT 27 U/L (7.0-40); AST/SGOT 36 U/L (<34); BILIRUBIN,TOTAL 3.5 MG/DL (0.3-1.2); BLOOD UREA NITROGEN 14 MG/DL (9-23); CALCIUM LEVEL 9.4 MG/DL (8.3-10.6); CARBON DIOXIDE LEVEL 22 MMOL/L (20-31); CHLORIDE LEVEL 108 MMOL/L (98-107); CREATININE FOR GFR 0.67 MG/DL (0.55-1.30); GLOMERULAR FILTRATION RATE > 60.0 (>45); GLUCOSE, FASTING 103 MG/DL (74-106); MAGNESIUM LEVEL 1.5 MG/DL (1.8-2.4); POTASSIUM SERUM 4.1 MMOL/L (3.5-5.1); SODIUM LEVEL 138 MMOL/L (136-145); TOTAL PROTEIN 6.8 G/DL (5.7-8.2)
== END ==
LOC: M LAB 16:07
PROVIDERS: ATTEND Internal Medicine Medical Oncology
DX: C18.9 Malignant neoplasm of colon, unspecified (principal)

== ENCOUNTER → 2024-04-05 | Outpatient (CLI) | payer MEDICARE, MEDICAID | LOC: M WHC 14:26 | PROVIDERS: ATTEND Family Medicine | DX: Z12.31 Encounter for screening mammogram for malignant neoplasm of breast (principal); R92.333 Mammographic heterogeneous density, bilateral breasts ==

== ENCOUNTER → 2024-04-06 | Outpatient (CLI) | payer MEDICARE, MEDICAID ==
[~2024-04-06] MED LIST changes: +GASTROGRAFIN SOLUTION 30ML As Ordered ONE; +ISOVUE-370 76% 100ML VIAL As Ordered ONE
== END ==
LOC: M RAD 10:34
PROVIDERS: ATTEND Internal Medicine Medical Oncology
DX: C18.9 Malignant neoplasm of colon, unspecified (principal)
CPT/HCPCS: 71260; 74177; Q9963; Q9967

== ENCOUNTER 2024-05-27 15:42 | Observation (INO) | payer MEDICARE, MEDICAID ==
[~2024-05-27] VITALS: Ht 157.5 cm; Wt 68.6 kg
[~2024-05-27 15:42] MED LIST changes: -GASTROGRAFIN SOLUTION 30ML As Ordered ONE; -ISOVUE-370 76% 100ML VIAL As Ordered ONE; +LEXA5TAB13 PO; +OMEP40CA5; +OXYC-517 PO; +OXYC1CAP2 PO; +STIV40TA PO; +TADA20TA29 PO
[2024-05-27 16:50] LABS: BASO % 0.2 % (0.0-1.0); EOS % 0.1 % (0.0-3.0); HEMATOCRIT 36.2 % (36.0-47.0); HEMOGLOBIN 11.8 g/dl (12.0-15.5); LYMPH # 0.5 10^3/uL (1.5-5.0); LYMPH % 4.1 % (24.0-44.0); MEAN CORPUSCULAR HEMOGLOBIN 31.6 pg (27.0-33.0); MEAN CORPUSCULAR HGB CONC 32.6 g/dl (32.0-36.5); MEAN CORPUSCULAR VOLUME 97.1 fl (80.0-96.0); MONO # 0.6 10^3/uL (0.0-0.8); MONO % 4.8 % (2.0-8.0); NEUTROPHILS # 10.5 10^3/uL (1.5-8.5); NEUTROPHILS % 90.4 % (36.0-66.0); RED BLOOD COUNT 3.73 10^6/uL (4.00-5.40); WHITE BLOOD COUNT 11.6 10^3/uL (4.0-10.0)
[2024-05-27 16:58] LABS: LIPASE 23 U/L (12-53)
[2024-05-27] MEDS: MORPHINE 4 MG/ML 1ML VIAL IV PRN ×2 (17:00→22:11)
[2024-05-27 17:01] LABS: ALBUMIN 2.9 G/DL (3.2-5.2); ALKALINE PHOSPHATASE 255 U/L (35-104); ALT/SGPT 18 U/L (7.0-40); AST/SGOT 43 U/L (<34); BILIRUBIN,DIRECT 1.2 MG/DL (<0.4); BILIRUBIN,TOTAL 2.7 MG/DL (0.3-1.2); BLOOD UREA NITROGEN 20 MG/DL (9-23); CALCIUM LEVEL 9.3 MG/DL (8.3-10.6); CARBON DIOXIDE LEVEL 19 MMOL/L (20-31); CHLORIDE LEVEL 111 MMOL/L (98-107); CREATININE FOR GFR 0.64 MG/DL (0.55-1.30); GLOMERULAR FILTRATION RATE > 60.0 (>45); GLUCOSE, FASTING 117 MG/DL (74-106); POTASSIUM SERUM 4.1 MMOL/L (3.5-5.1); SODIUM LEVEL 141 MMOL/L (136-145); TOTAL PROTEIN 6.2 G/DL (5.7-8.2)
[2024-05-27 17:18] LABS: PLATELET COUNT, AUTOMATED 94 10^3/uL (150-450)
[2024-05-27] MEDS: PROMETHAZINE 25MG/ML 1ML VIAL IV ONE (17:21)
[2024-05-27] MEDS: NS 500 ML IV ONE ×2 (17:48→23:17)
[2024-05-27] MEDS ORDERED: PROHANCE 279.3MG/ML 15ML VIAL As Ordered ONE (20:34)
[2024-05-27 23:04] LABS: KETONE, URINE AUTO RFX TRACE mg/dL (NEGATIVE); LEUKOCYTE ESTERASE UR AUTO RFX NEGATIVE (NEGATIVE); MUCUS, URINE RFX LARGE (NEGATIVE); NITRITE, URINE AUTO RFX NEGATIVE (NEGATIVE)
[2024-05-28] MEDS ORDERED: FAMO20TA PO (00:43)
[2024-05-28] MEDS ORDERED: HOME MED LIST COMPLETE! XX SCH (00:45)
[2024-05-28] MEDS ORDERED: MOM 30ML SUSPENSION UDC PO PRN (00:45)
[2024-05-28] MEDS ORDERED: traMADol 50 MG TAB PO PRN (00:45)
[2024-05-28] MEDS ORDERED: LORazepam 1 MG TAB PO PRN (00:55)
[2024-05-28] MEDS: ACETAMINOPHEN 325 MG TAB PO PRN (05:05)
[2024-05-28] MEDS: MORPHINE 2 MG/ML 1ML VIAL IV PRN (05:06)
[2024-05-28 06:15] LABS: HEMATOCRIT 32.4 % (36.0-47.0); HEMOGLOBIN 10.3 g/dl (12.0-15.5); MEAN CORPUSCULAR HEMOGLOBIN 31.5 pg (27.0-33.0); MEAN CORPUSCULAR HGB CONC 31.8 g/dl (32.0-36.5); MEAN CORPUSCULAR VOLUME 99.1 fl (80.0-96.0); RED BLOOD COUNT 3.27 10^6/uL (4.00-5.40)
[2024-05-28 06:16] LABS: PLATELET COUNT, AUTOMATED 65 10^3/uL (150-450)
[2024-05-28 06:54] LABS: ALBUMIN 2.7 G/DL (3.2-5.2); ALKALINE PHOSPHATASE 211 U/L (35-104); ALT/SGPT 13 U/L (7.0-40); AST/SGOT 46 U/L (<34); BILIRUBIN,TOTAL 2.3 MG/DL (0.3-1.2); BLOOD UREA NITROGEN 21 MG/DL (9-23); CALCIUM LEVEL 8.7 MG/DL (8.3-10.6); CARBON DIOXIDE LEVEL 18 MMOL/L (20-31); CHLORIDE LEVEL 112 MMOL/L (98-107); CREATININE FOR GFR 0.67 MG/DL (0.55-1.30); GLOMERULAR FILTRATION RATE > 60.0 (>45); GLUCOSE, FASTING 108 MG/DL (74-106); POTASSIUM SERUM 4.1 MMOL/L (3.5-5.1); SODIUM LEVEL 142 MMOL/L (136-145); TOTAL PROTEIN 5.5 G/DL (5.7-8.2)
[2024-05-28] MEDS: dexAMETHasone 2 MG TAB PO SCH (08:04)
[2024-05-28] MEDS: DOCUSATE SODIUM 100MG CAPSULE PO SCH (08:04)
[2024-05-28] MEDS: MAGNESIUM OXIDE 400MG TAB (MAG-OX) PO SCH (08:04)
[2024-05-28] MEDS: ESCITALOPRAM OXALATE 5MG TABLET (LEXAPRO) PO SCH (08:08)
[2024-05-28] MEDS: LR 1,000 ML IV SCH (10:19)
[2024-05-28 12:00] VITALS: BP 105/71; TEMP 97.9; O2SAT 92
[2024-05-28] MEDS: PANTOPRAZOLE 40MG VIAL IV SCH (12:34)
[2024-05-28] MEDS: ROMIPLOSTIM 125 MCG SC ONE (12:35)
[2024-05-28] MEDS: OPSUMIT 10 MG PO SCH (12:36)
[2024-05-28] MEDS: TADALAFIL 20 MG PO SCH (12:36)
[2024-05-28 14:28] VITALS: BP 105/71; TEMP 97.9; O2SAT 92
[2024-05-28 18:00] LABS: BLOOD UREA NITROGEN 19 MG/DL (9-23); CALCIUM LEVEL 8.8 MG/DL (8.3-10.6); CARBON DIOXIDE LEVEL 19 MMOL/L (20-31); CHLORIDE LEVEL 111 MMOL/L (98-107); CREATININE FOR GFR 0.63 MG/DL (0.55-1.30); GLOMERULAR FILTRATION RATE > 60.0 (>45); GLUCOSE, FASTING 120 MG/DL (74-106); POTASSIUM SERUM 4.3 MMOL/L (3.5-5.1); SODIUM LEVEL 141 MMOL/L (136-145)
[2024-05-28 20:00] VITALS: BP 96/66; TEMP 98.4; O2SAT 95
[2024-05-28] MEDS ORDERED: FAMOTIDINE 20 MG TAB PO SCH (21:00)
[2024-05-28] MEDS: SODIUM BICARBONATE 325 MG TAB PO SCH (21:00)
[2024-05-29 00:20] VITALS: BP 104/65
[2024-05-29] MEDS: RAMELTEON 8 MG TAB (ROZEREM) PO PRN (01:03)
[2024-05-29 04:00] VITALS: BP 105/61; TEMP 98.4; O2SAT 92
[2024-05-29 06:04] LABS: BASO % 0.3 % (0.0-1.0); EOS % 0.6 % (0.0-3.0); HEMATOCRIT 31.6 % (36.0-47.0); HEMOGLOBIN 10.2 g/dl (12.0-15.5); LYMPH # 0.7 10^3/uL (1.5-5.0); LYMPH % 11.1 % (24.0-44.0); MEAN CORPUSCULAR HEMOGLOBIN 31.3 pg (27.0-33.0); MEAN CORPUSCULAR HGB CONC 32.3 g/dl (32.0-36.5); MEAN CORPUSCULAR VOLUME 96.9 fl (80.0-96.0); MONO # 0.7 10^3/uL (0.0-0.8); MONO % 11.1 % (2.0-8.0); NEUTROPHILS % 76.6 % (36.0-66.0); RED BLOOD COUNT 3.26 10^6/uL (4.00-5.40); WHITE BLOOD COUNT 6.5 10^3/uL (4.0-10.0)
[2024-05-29 06:14] LABS: PLATELET COUNT, AUTOMATED 69 10^3/uL (150-450)
[2024-05-29 06:22] LABS: BLOOD UREA NITROGEN 18 MG/DL (9-23); CALCIUM LEVEL 8.3 MG/DL (8.3-10.6); CARBON DIOXIDE LEVEL 20 MMOL/L (20-31); CHLORIDE LEVEL 111 MMOL/L (98-107); CREATININE FOR GFR 0.63 MG/DL (0.55-1.30); GLOMERULAR FILTRATION RATE > 60.0 (>45); GLUCOSE, FASTING 106 MG/DL (74-106); MAGNESIUM LEVEL 1.5 MG/DL (1.8-2.4); POTASSIUM SERUM 3.8 MMOL/L (3.5-5.1); SODIUM LEVEL 142 MMOL/L (136-145)
[2024-05-29] MEDS: oxyCODONE 5MG TAB PO PRN (09:03)
[2024-05-29] MEDS: MAG SULF 1GM/100ML (MAG RUN) 1 GM in IV 1 EA IV SCH (09:04)
[2024-05-29 12:00] VITALS: BP 105/60; TEMP 98.1; O2SAT 90
== END 2024-05-29 13:06 | disposition home or self-care (01) ==
LOC: M ED 15:42 → M ED INP 15:43 → M MSPAV 05-28 14:28
PROVIDERS: ADMIT Family Medicine; ATTEND Internal Medicine
DX: G89.3 Neoplasm related pain (acute) (chronic) (principal); C18.9 Malignant neoplasm of colon, unspecified; C78.7 Secondary malignant neoplasm of liver and intrahepatic bile duct; I27.20 Pulmonary hypertension, unspecified; K70.30 Alcoholic cirrhosis of liver without ascites; D69.6 Thrombocytopenia, unspecified; Z85.118 Personal history of other malignant neoplasm of bronchus and lung; Z90.2 Acquired absence of lung [part of]; K76.6 Portal hypertension; I85.00 Esophageal varices without bleeding; R16.1 Splenomegaly, not elsewhere classified; G47.33 Obstructive sleep apnea (adult) (pediatric); G47.61 Periodic limb movement disorder; F41.9 Anxiety disorder, unspecified; E87.20 Acidosis, unspecified; D84.821 Immunodeficiency due to drugs; Z79.899 Other long term (current) drug therapy; Z88.0 Allergy status to penicillin; Z87.891 Personal history of nicotine dependence
CPT/HCPCS: 36415; 72197; 76830; 76856; 80047; 80048; 80053; 80076; 81001; 83690; 83735; 85025; 85027; 85049; 85055; 93041; 96361; 96365; 96372; 96375; 96376; 99285; A9576; G0378; J2470; J2550; J2796; J3475

== ENCOUNTER 2024-08-07 21:46 | Inpatient (IN) | payer MEDICARE, MEDICAID ==
[~2024-08-07] VITALS: Ht 162.6 cm; Wt 68.4 kg
[~2024-08-07 21:46] MED LIST changes: +TRAM50TA2 PO
[2024-08-07] MEDS ORDERED: IPRATROPIUM 0.5MG/ALBUTEROL 2.5MG INH SOL UD 3ML (DUONEB) NEB PRN (21:55)
[2024-08-07] MEDS ORDERED: LORazepam 2 MG/ML 1ML VIAL As Ordered ONE (22:02)
[2024-08-07] MEDS: LORazepam 2 MG/ML 1ML VIAL IV STA (22:04)
[2024-08-07] MEDS: NS (Normal Saline) 0.9% 1,000 ML IV ONE (22:05)
[2024-08-07 22:14] LABS: VENOUS BASE EXCESS -12.9 (-2.0-2.0); VENOUS HCO3 13.1 MMOL/L (23.0-27.0); VENOUS O2 SATURATION 79.1 % (60.0-80.0); VENOUS PARTIAL PRESSURE O2 51.9 mmHg (30.0-50.0); VENOUS PH 7.244 UNITS (7.330-7.430); VENOUS STANDARD HCO3 14.3 MMOL/L; VENOUS TOTAL CO2 14.1 MMOL/L (24.0-28.0)
[2024-08-07 22:16] LABS: BASO # 0.1 10^3/uL (0.0-0.2); BASO % 0.3 % (0.0-1.0); EOS # 0.1 10^3/uL (0.0-0.5); EOS % 0.8 % (0.0-3.0); HEMATOCRIT 40.9 % (36.0-47.0); LYMPH # 1.4 10^3/uL (1.5-5.0); MEAN CORPUSCULAR HGB CONC 31.8 g/dl (32.0-36.5); MEAN CORPUSCULAR VOLUME 103.8 fl (80.0-96.0); MONO # 0.2 10^3/uL (0.0-0.8); MONO % 1.1 % (2.0-8.0); NEUTROPHILS # 12.5 10^3/uL (1.5-8.5); NEUTROPHILS % 87.1 % (36.0-66.0); PLATELET COUNT, AUTOMATED 136 10^3/uL (150-450); RED BLOOD COUNT 3.94 10^6/uL (4.00-5.40); WHITE BLOOD COUNT 14.3 10^3/uL (4.0-10.0)
[2024-08-07] MEDS: LEVALBUTEROL 1.25MG 0.5ML CONCENTRATE NEB NEB ONE ×2 (22:17)
[2024-08-07] MEDS: MAG SULF 1GM/100ML (MAG RUN) 1 GM in IV 1 EA IV ONE (22:20)
[2024-08-07] MEDS: dexAMETHasone 20MG/5ML VIAL IV ONE (22:30)
[2024-08-07 22:49] LABS: CK-MB VALUE MASS 1.9 NG/ML (<3.6)
[2024-08-07 22:52] LABS: THYROID STIMULATING HORMONE 4.152 uIU/ML (0.55-4.78); THYROXINE (T4) 7.7 UG/DL (4.5-10.9)
[2024-08-07] MEDS ORDERED: PHENYLEPHRINE HCL INJ 50 MG in D5W 500 ML IV SCH (22:55)
[2024-08-07 22:56] LABS: PROCALCITONIN 0.46 ng/ml
[2024-08-07 23:03] LABS: ALBUMIN 2.4 G/DL (3.2-5.2); ALKALINE PHOSPHATASE 581 U/L (35-104); ALT/SGPT 41 U/L (7.0-40); AST/SGOT 141 U/L (<34); BILIRUBIN,DIRECT 10.8 MG/DL (<0.4); BILIRUBIN,TOTAL 16.3 MG/DL (0.3-1.2); BLOOD UREA NITROGEN 13 MG/DL (9-23); CALCIUM LEVEL 8.9 MG/DL (8.3-10.6); CARBON DIOXIDE LEVEL 13 MMOL/L (20-31); CHLORIDE LEVEL 106 MMOL/L (98-107); CPK CREATINE PHOSPHOKINASE 76 U/L (34-145); GLOMERULAR FILTRATION RATE > 60.0 (>45); GLUCOSE, FASTING 100 MG/DL (74-106); SODIUM LEVEL 140 MMOL/L (136-145); TOTAL PROTEIN 6.4 G/DL (5.7-8.2)
[2024-08-07] MEDS: NS 0.9% IV ONE (23:17)
[2024-08-07] MEDS: [UNRECOGNIZED DRUG - OTHER] IV ONE (23:17)
[2024-08-07] MEDS: CEFEPIME HCL 2 GM in DEXTROSE 5% (D5W) ADV/MINI-BAG 50 ML IV ONE (23:17)
[2024-08-07] MEDS: NOREPINEPHRINE 4MG IN D5 250ML 4 MG in IV 1 EA IV SCH (23:26)
[2024-08-08] VITALS (42 sets, daily range): BP systolic 90–125; BP diastolic 56–80; TEMP 97.1–98.2; O2SAT 90–99
[2024-08-08 00:03] LABS: CK-MB VALUE MASS 7.7 NG/ML (<3.6); MB/CK RELATIVE INDEX 6.58 (< OR =4)
[2024-08-08 00:05] LABS: KETONE, URINE AUTO RFX NEGATIVE (NEGATIVE); LEUKOCYTE ESTERASE UR AUTO RFX NEGATIVE (NEGATIVE); MUCUS, URINE RFX LARGE (NEGATIVE); NITRITE, URINE AUTO RFX NEGATIVE (NEGATIVE); RBC, URINE AUTO RFX 8 /HPF (0-3); SQUAM EPITHELIAL CELL UR AURFX 16 /HPF (0-6); TRANSITIONAL EPITHELIAL AU RFX 2 /HPF; WBC, URINE AUTO RFX 61 /HPF (0-3)
[2024-08-08] MEDS ORDERED: ISOVUE-370 76% 100ML VIAL As Ordered ONE (00:27)
[2024-08-08] MEDS: MORPHINE 4 MG/ML 1ML VIAL IV ONE (00:58)
[2024-08-08] MEDS: ASPIRIN 325 MG TAB PO ONE (01:53)
[2024-08-08] MEDS ORDERED: ALBUTEROL SULFATE 2.5MG/0.5ML INH NEB SOLN NEB PRN (02:05)
[2024-08-08] MEDS ORDERED: NOREPINEPHRINE 4MG IN D5 250ML 4 MG in IV 1 EA IV SCH (02:05)
[2024-08-08] MEDS ORDERED: ACETAMINOPHEN *IV* 1,000 MG in IV 1 EA IV PRN (02:10)
[2024-08-08] MEDS ORDERED: OXYC-517 PO (02:21)
[2024-08-08] MEDS ORDERED: ACET-683 PO (02:21)
[2024-08-08] MEDS ORDERED: HOME MED LIST COMPLETE! XX SCH (02:25)
[2024-08-08] MEDS: LEVALBUTEROL 1.25MG 0.5ML CONCENTRATE NEB NEB SCH (03:10)
[2024-08-08] MEDS: D5W/0.9% SODIUM CHLORIDE 1,000 ML IV SCH (03:17)
[2024-08-08] MEDS ORDERED: PILL CUTTER 1 EACH XX ONE (03:42)
[2024-08-08] MEDS: HYDROmorphone 2 MG TAB PO PRN (03:50)
[2024-08-08] MEDS: LORazepam 2 MG/ML 1ML VIAL IV PRN ×2 (05:00→22:50)
[2024-08-08] MEDS: HYDROCORTISONE 100MG/2ML VIAL IV SCH (06:10)
[2024-08-08] MEDS: IPRATROPIUM 0.5MG/ALBUTEROL 2.5MG INH SOL UD 3ML (DUONEB) NEB SCH (08:00)
[2024-08-08 08:15] LABS: BASO # 0.1 10^3/uL (0.0-0.2); BASO % 0.3 % (0.0-1.0); EOS # 0.1 10^3/uL (0.0-0.5); EOS % 0.2 % (0.0-3.0); HEMATOCRIT 40.4 % (36.0-47.0); HEMOGLOBIN 12.4 g/dl (12.0-15.5); LYMPH # 0.8 10^3/uL (1.5-5.0); LYMPH % 1.9 % (24.0-44.0); MEAN CORPUSCULAR HGB CONC 30.7 g/dl (32.0-36.5); MEAN CORPUSCULAR VOLUME 107.4 fl (80.0-96.0); MONO % 2.4 % (2.0-8.0); NEUTROPHILS % 92.3 % (36.0-66.0); PLATELET COUNT, AUTOMATED 116 10^3/uL (150-450); RED BLOOD COUNT 3.76 10^6/uL (4.00-5.40)
[2024-08-08 08:16] LABS: WHITE BLOOD COUNT 42.2 10^3/uL (4.0-10.0)
[2024-08-08] MEDS ORDERED: ACETAMINOPHEN 500 MG TAB PO PRN (08:30)
[2024-08-08 08:36] LABS: ABG BASE EXCESS -19.9 (-2.0-2.0); ABG HCO3 6.2 MMOL/L (22.0-26.0); ABG PARTIAL PRESSURE O2 67.3 mmHg (75.0-100.0); ABG STANDARD HCO3 9.8 MMOL/L. (22.0-26.0); ABG TOTAL CO2 6.8 MMOL/L (23.0-31.0)
[2024-08-08 08:40] LABS: ABG pH (ARTERIAL) 7.182 UNITS (7.350-7.450)
[2024-08-08 08:58] LABS: ALBUMIN 2.5 G/DL (3.2-5.2); ALKALINE PHOSPHATASE 475 U/L (35-104); ALT/SGPT 43 U/L (7.0-40); AST/SGOT 225 U/L (<34); BILIRUBIN,TOTAL 17.3 MG/DL (0.3-1.2); BLOOD UREA NITROGEN 16 MG/DL (9-23); CARBON DIOXIDE LEVEL < 10.0 MMOL/L (20-31); CHLORIDE LEVEL 109 MMOL/L (98-107); CREATININE FOR GFR 0.75 MG/DL (0.55-1.30); GLOMERULAR FILTRATION RATE > 60.0 (>45); GLUCOSE, FASTING 165 MG/DL (74-106); MAGNESIUM LEVEL 2.1 MG/DL (1.8-2.4); POTASSIUM SERUM 3.7 MMOL/L (3.5-5.1); SODIUM LEVEL 141 MMOL/L (136-145); TOTAL PROTEIN 6.4 G/DL (5.7-8.2)
[2024-08-08] MEDS: oxyCODONE 5MG TAB PO PRN (08:59)
[2024-08-08] MEDS: cefTRIAXone SOD 1 GM in DEXTROSE 5% (D5W) ADV/MINI-BAG 50 ML IV SCH (09:00)
[2024-08-08] MEDS: PANTOPRAZOLE 40MG VIAL IV SCH (09:00)
[2024-08-08] MEDS: dexAMETHasone 4 MG TAB PO SCH (09:00)
[2024-08-08] MEDS: NS (Normal Saline) 0.9% 1,000 ML IV ONE ×2 (09:07→14:27)
[2024-08-08] MEDS ORDERED: HEPARIN SOD (PORCINE) 5000UNITS/ML 1ML VIAL/SYRINGE SQ SCH (10:40)
[2024-08-08] MEDS ORDERED: CEFEPIME HCL 2 GM in DEXTROSE 5% (D5W) ADV/MINI-BAG 50 ML IV SCH (11:00)
[2024-08-08] MEDS: BUDESONIDE 0.5 MG/2 ML INHALATION SUSPENSION NEB SCH (11:44)
[2024-08-08] MEDS: POTASSIUM CHLORIDE 10MEQ SR TABLET PO ONE (12:49)
[2024-08-08] MEDS: LORazepam 1 MG TAB PO PRN (15:39)
[2024-08-08] MEDS: MACITENTAN 10 MG PO SCH (18:21)
[2024-08-08 19:49] LABS: HEMATOCRIT 37.5 % (36.0-47.0); HEMOGLOBIN 11.6 g/dl (12.0-15.5); MEAN CORPUSCULAR HEMOGLOBIN 33.2 pg (27.0-33.0); MEAN CORPUSCULAR HGB CONC 30.9 g/dl (32.0-36.5); MEAN CORPUSCULAR VOLUME 107.4 fl (80.0-96.0); PLATELET COUNT, AUTOMATED 121 10^3/uL (150-450); RED BLOOD COUNT 3.49 10^6/uL (4.00-5.40)
[2024-08-08 20:08] LABS: BLOOD UREA NITROGEN 22 MG/DL (9-23); CALCIUM LEVEL 8.5 MG/DL (8.3-10.6); CARBON DIOXIDE LEVEL 11 MMOL/L (20-31); CHLORIDE LEVEL 109 MMOL/L (98-107); CREATININE FOR GFR 0.87 MG/DL (0.55-1.30); GLOMERULAR FILTRATION RATE > 60.0 (>45); GLUCOSE, FASTING 143 MG/DL (74-106); POTASSIUM SERUM 4.2 MMOL/L (3.5-5.1); SODIUM LEVEL 140 MMOL/L (136-145)
[2024-08-08] MEDS ORDERED: LORazepam 1 MG TAB PO SCH (21:00)
[2024-08-08] MEDS: HYDROMORPHONE HCL 0.5 MG/ 0.5 ML SYRINGE IV STA (22:34)
[2024-08-08] MEDS: MORPHINE 2 MG/ML 1ML VIAL IV PRN (22:50)
[2024-08-09] MEDS ORDERED: ENOXAPARIN 40MG/0.4ML SYRINGE (J1650 PER 10MG) SC SCH (09:00)
[2024-08-09] MEDS ORDERED: ASPIRIN 325 MG TAB PO SCH (09:00)
== END 2024-08-09 02:25 | disposition expired | DRG 193 ==
LOC: M ED 21:46 → EDBD 21:46 → M ED INP 08-08 02:03 → M ICU 08-08 02:57
PROVIDERS: ADMIT Student in an Organized Health Care Education/Training Program; ATTEND Internal Medicine
DX: J12.89 Other viral pneumonia (principal); J96.01 Acute respiratory failure with hypoxia; I21.4 Non-ST elevation (NSTEMI) myocardial infarction; K83.1 Obstruction of bile duct; I27.0 Primary pulmonary hypertension; K76.6 Portal hypertension; I48.92 Unspecified atrial flutter; C78.01 Secondary malignant neoplasm of right lung; C78.02 Secondary malignant neoplasm of left lung; E87.4 Mixed disorder of acid-base balance; I47.20 Ventricular tachycardia, unspecified; C78.7 Secondary malignant neoplasm of liver and intrahepatic bile duct; C18.9 Malignant neoplasm of colon, unspecified; N39.0 Urinary tract infection, site not specified; I85.10 Secondary esophageal varices without bleeding; Z51.5 Encounter for palliative care; Z66 Do not resuscitate; F41.9 Anxiety disorder, unspecified; G47.61 Periodic limb movement disorder; G89.3 Neoplasm related pain (acute) (chronic); B97.89 Other viral agents as the cause of diseases classified elsewhere; I49.3 Ventricular premature depolarization; K70.30 Alcoholic cirrhosis of liver without ascites; G47.33 Obstructive sleep apnea (adult) (pediatric); D69.6 Thrombocytopenia, unspecified; G47.00 Insomnia, unspecified; Z79.899 Other long term (current) drug therapy